=== PATIENT | female | born 1960 | race Caucasian/White ===

== ENCOUNTER 2020-04-07 17:59 | Emergency (ER) | payer MEDICARE, MEDICAID ==
[~2020-04-07] VITALS: Ht 172 cm; Wt 95.3 kg
[~2020-04-07 17:59] MED LIST: ALBU0.632 IH; ALBU0.8322 IH; ALBU8.5H2 IH; ALPR1TAB72 PO; ANTACID OTC PO; ASP325T PO; ASP325TEC PO; ASP81CT PO; ASP81TEC PO; ATR20T PO; AZIT-21 PO; BUDE6HFA IH; CA C1TAB26 PO; CALC-656 PO; CALC600T PO; CALC625T PO; CALCIUM CITRATE PO; CALCIUM PO; CALTRATE 600 +1 EACH PO; CEPH-507 PO; CHOL10003 PO; CLN.1T; CLN.1T PO; DICL75TA2 PO; DICY10CA59 PO; DIPH1TAB25 PO; DULO60CA6 PO; EFAV1TAB3; EFAV1TAB3 PO; EST.625T; ESTR2TAB PO; ESTR2TAB4 PO; FIBER THERAPY PO; FLUT16SP22 NS; GABAPENTIN PO; GBPN300C PO; HCT25T PO; HSC125B15 GT; HYDR-2997 PO; IBUP-15 PO; IMIP25TA4 PO; JANUVIA; LEVE1U SQ; LIPA1CAP20 PO; LIPA1CAP36 PO; LMTL2.5TRX PO; LOPE2TAB23 PO; LORA10TA2 PO; LRT10T PO; MELO-195 PO; MELO15TA14 PO; MEPE50TA PO; METH-336 PO; METH4TAB PO; METO25TA PO; MMT17NA NSEACH; MOME0.244 IH; MOMETASONE; MULT-974 PO; NAPR-1070 PO; NF-ESOM40C PO; NF-PULMINH INH; NITR-65 PO; NTR.4SL PO; NTR.4SL SL; ONDA8TAB9 PO; ONDAN4ODT PO; OXC5T; OXYC-12 PO; PANCRELIPASE PO; POTA10CA43 PO; PRM25T PO; PROP15DR OP; RHINOCORT AQUA IH; RT-COMBINH; RT-COMBINH IH; SOLI10TA4 PO; SOLI5TAB4 PO; SULF-222 PO; TOPI25TA2 PO; TPR25T PO; TRAM50TA2 PO; VARE1TAB17 PO; VITAMIN D PO; [UNRECOGNIZED DRUG - OTHER] PO; [UNRECOGNIZED DRUG - OTHER] PO
--- NOTE | 2020-04-07 18:06 | NUR ---
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
[2020-04-07] MEDS ORDERED: LIDOCAINE 1% INJ 20 ML 20 ML VIAL ONE (19:30)
[2020-04-07] MEDS ORDERED: LIDOCAINE 1% INJ 20 ML 20 ML VIAL INJ ONE (19:45)
[2020-04-07] MEDS ORDERED: CEPH500T PO (19:55)
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
--- NOTE | 2020-04-07 20:00 | Diagnostic Imaging Report ---
EXAMINATION: Right hand 3 views HISTORY: Laceration COMPARISON: 03/17/2011 FINDINGS: Alignment is normal. No acute fracture is seen. 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 No radiopaque foreign body is seen. IMPRESSION: 1. No fracture or foreign body is identified. Dictated by: Dictated on workstation # [id number]
[2020-04-07] MEDS ORDERED: CEPHALEXIN 250 MG (KEFLEX) CAP PO STA (20:11)
[2020-04-07] MEDS ORDERED: TETANUS,DIPTH,PERTUSS P/F (BOOSTRIX) 0.5 ML VIAL IM ONE (20:15)
[2020-04-07 20:19] VITALS: BP 137/81
== END 2020-04-07 20:19 | disposition home or self-care (01) ==
LOC: EDUNIT# 17:59 → ER 18:01
DX: S61.011A Laceration without foreign body of right thumb without damage to nail, initial encounter (principal); J44.9 Chronic obstructive pulmonary disease, unspecified; Z21 Asymptomatic human immunodeficiency virus [HIV] infection status; E11.40 Type 2 diabetes mellitus with diabetic neuropathy, unspecified; E78.00 Pure hypercholesterolemia, unspecified; F32.9 Major depressive disorder, single episode, unspecified; F41.9 Anxiety disorder, unspecified; I10 Essential (primary) hypertension; K21.9 Gastro-esophageal reflux disease without esophagitis; K44.9 Diaphragmatic hernia without obstruction or gangrene; K58.9 Irritable bowel syndrome, unspecified; M19.91 Primary osteoarthritis, unspecified site; M79.7 Fibromyalgia; Z79.4 Long term (current) use of insulin; Z90.710 Acquired absence of both cervix and uterus; W33.11XA Accidental malfunction of shotgun, initial encounter; Y93.79 Activity, other specified sports and athletics; Z23 Encounter for immunization
CPT/HCPCS: 12001; 73130; 90471; 90715

== ENCOUNTER 2020-04-22 16:08 | Emergency (ER) | payer MEDICARE, MEDICAID ==
[~2020-04-22] VITALS: Ht 175.3 cm; Wt 90.7 kg
[~2020-04-22 16:08] MED LIST changes: +CEPH500T PO
[2020-04-22 16:18] VITALS: BP 128/79
== END 2020-04-22 16:26 | disposition home or self-care (01) ==
LOC: ER 16:08 → EDUNIT# 16:08 → ER 16:26
DX: S61.011D Laceration without foreign body of right thumb without damage to nail, subsequent encounter (principal); X58.XXXD Exposure to other specified factors, subsequent encounter
CPT/HCPCS: 99281

== ENCOUNTER 2020-07-22 08:53 | Emergency (ER) | payer MEDICARE, MEDICAID ==
[~2020-07-22] VITALS: Ht 172.7 cm; Wt 88.6 kg
--- NOTE | 2020-07-22 10:15 | Diagnostic Imaging Report ---
INDICATION: Pain after fall. FINDINGS: There is a comminuted intra-articular fracture involving the proximal aspect of the middle phalanx of the left 5th finger. This is only slightly displaced. There is no other fracture or dislocation. There is soft tissue swelling. IMPRESSION: Intra-articular fracture involving the proximal aspect of the middle phalanx of the left 5th finger as described. Dictated by: Dictated on workstation # [id number]
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
[2020-07-22 10:50] VITALS: BP 151/77
== END 2020-07-22 10:50 | disposition home or self-care (01) ==
LOC: EDUNIT# 08:53 → ER 08:54
DX: S62.617A Displaced fracture of proximal phalanx of left little finger, initial encounter for closed fracture (principal); E78.00 Pure hypercholesterolemia, unspecified; I10 Essential (primary) hypertension; E11.9 Type 2 diabetes mellitus without complications; J44.9 Chronic obstructive pulmonary disease, unspecified; K21.9 Gastro-esophageal reflux disease without esophagitis; F41.9 Anxiety disorder, unspecified; F32.9 Major depressive disorder, single episode, unspecified; F17.200 Nicotine dependence, unspecified, uncomplicated; Z95.5 Presence of coronary angioplasty implant and graft; Z88.0 Allergy status to penicillin; Z88.1 Allergy status to other antibiotic agents; Z88.5 Allergy status to narcotic agent; Z88.8 Allergy status to other drugs, medicaments and biological substances; Z79.4 Long term (current) use of insulin; W18.39XA Other fall on same level, initial encounter
CPT/HCPCS: 73140

== ENCOUNTER → 2020-08-13 | Outpatient (CLI) | payer MEDICARE, MEDICAID | LOC: LAB 16:13 | PROVIDERS: ATTEND Nurse Practitioner Family | DX: Z01.818 Encounter for other preprocedural examination (principal) | CPT/HCPCS: 87081 ==

== ENCOUNTER → 2020-08-15 | Outpatient (CLI) | payer MEDICARE, MEDICAID | LOC: LABNPT 06:12 | PROVIDERS: ATTEND Nurse Practitioner Family | DX: Z01.812 Encounter for preprocedural laboratory examination (principal); Z20.828 Contact with and (suspected) exposure to other viral communicable diseases | CPT/HCPCS: 87635 ==

== ENCOUNTER 2020-08-24 16:34 | Emergency (ER) | payer MEDICARE, MEDICAID ==
[~2020-08-24] VITALS: Ht 173 cm; Wt 84.0 kg
[2020-08-24 17:30] LABS: BASOPHILS % (AUTO) 0 % (0-10); EOSINOPHILS # (AUTO) 0.2 10^3/uL (0.0-0.3); EOSINOPHILS % (AUTO) 2 % (0-10); HEMATOCRIT 34 % (35-52); HEMOGLOBIN 11.3 g/dL (11.5-16.0); LYMPHOCYTES # (AUTO) 2.3 10^3/uL (1.0-4.0); LYMPHOCYTES % (AUTO) 21 % (12-44); MEAN CORPUSCULAR HEMOGLOBIN 28 pg (25-34); MEAN CORPUSCULAR HGB CONC 33 g/dL (32-36); MEAN CORPUSCULAR VOLUME 85 fL (80-99); MEAN PLATELET VOLUME 9.7 fL (9.0-12.2); MONOCYTES # (AUTO) 1.3 10^3/uL (0.0-1.0); MONOCYTES % (AUTO) 12 % (0-12); NEUTROPHILS # (AUTO) 7.1 10^3/uL (1.8-7.8); NEUTROPHILS % (AUTO) 65 % (42-75); PLATELET COUNT 335 10^3/uL (130-400); WHITE BLOOD COUNT 10.9 10^3/uL (4.3-11.0)
[2020-08-24 17:41] LABS: ALBUMIN 3.5 GM/DL (3.2-4.5); CHLORIDE 99 MMOL/L (98-107); POTASSIUM 3.4 MMOL/L (3.6-5.0); SODIUM 135 MMOL/L (135-145)
[2020-08-24 17:42] LABS: CALCIUM 8.5 MG/DL (8.5-10.1)
[2020-08-24 17:43] LABS: GLUCOSE 96 MG/DL (70-105); TOTAL PROTEIN 6.4 GM/DL (6.4-8.2)
[2020-08-24 17:44] LABS: CARBON DIOXIDE 24 MMOL/L (21-32)
[2020-08-24 17:45] LABS: BILIRUBIN,TOTAL 0.8 MG/DL (0.1-1.0)
[2020-08-24 17:47] LABS: ALKALINE PHOSPHATASE 115 U/L (40-136); CREATININE SERUM 0.75 MG/DL (0.60-1.30); GFR ESTIMATED > 60
[2020-08-24 17:48] LABS: BUN/CREATININE RATIO 11
[2020-08-24 17:50] LABS: ALANINE AMINOTRANSFERASE 163 U/L (0-55)
[2020-08-24 17:58] LABS: ERYTHROCYTE SEDIMENTATION RATE 51 MM/HR (0-30)
--- NOTE | 2020-08-24 18:11 | ED Lower Extremity ---
General Chief Complaint: Lower Extremity Stated Complaint: LEFT KNEE PAIN Nursing Triage Note: Report she had a L knee replacement on the 20 of August and was discharged from the hospital on the . still having pain and noticing that it appeared to be getting red and feeling warm having increased pain with bearing weight on it. Nursing Sepsis Screen: No Definite Risk Source: patient Exam Limitations: no limitations History of Present Illness Date Seen by Provider: Aug 24, 2020 Time Seen by Provider: 17:02 Initial Comments This 59-year-old woman presents to the emergency room with worsening left knee pain, erythema, and swelling. Today is postoperative day #4 after having a superior partial knee replacement on the left. She had history of prior knee arthroplasty and part of the hardware was replaced. She denies fever. She has increased pain with weightbearing and walking. She called the on-call provider for her surgeon and was directed to the emergency room. Her surgeon is Dr. Cristiano Vences that [facility] in [place]. Allergies and Home Medications Allergies Coded Allergies: Penicillins (Unverified Allergy, Mild, ITCHING, 10/07/09) ciprofloxacin (Unverified Allergy, Mild, DIARRHEA, 10/07/09) diclofenac (Unverified Allergy, Mild, UPSET STOMACH, 10/07/09) fluticasone (Unverified Allergy, Mild, SWELLING, 10/07/09) levofloxacin (Unverified Allergy, Mild, DIARRHEA, 10/07/09) metformin (Unverified Allergy, Mild, COGNITIVE CHANGE, 10/07/09) misoprostol (Unverified Allergy, Mild, UPSET STOMACH, 10/07/09) nabumetone (Unverified Allergy, Mild, UPSET STOMACH, 10/07/09) pregabalin (Unverified Allergy, Mild, SWELING, 10/07/09) rofecoxib (Unverified Allergy, Mild, ULCERS, 10/07/09) salmeterol (Unverified Allergy, Mild, SWELLING, 10/07/09) diclofenac sodium (Unverified Allergy, Unknown, 02/01/15) fluticasone propionate (Unverified Allergy, Unknown, 02/01/15) hydrocodone (Verified Allergy, Unknown, 02/01/15) oxycodone (Verified Allergy, Unknown, 02/01/15) salmeterol xinafoate (Unverified Allergy, Unknown, 02/01/15) Home Medications Albuterol 8.5 Gm Hfa.aer.ad, 2 PUFF IH EVERY 4-6 HOURS PRN, (Reported) NEEDED FOR SHORTNESS OF BREATH Albuterol Sulfate 0.63 Mg/3 Ml Vial.neb, 0.63 MG IH Q 4 - 6 HRS PRN, (Reported) NEEDED FOR BREATHING Alprazolam 1 Mg Tab.rapdis, 1 MG PO Q8H PRN, (Reported) Amylase/Lipase/Protease 1 Each Capsule.dr, 6,000 UNITS PO TID, (Reported) BEFORE MEALS Atorvastatin 20 Mg Tablet, 40 MG PO DAILY, (Reported) Calcium Carbonate/Vitamin D3 1 Each Tab.chew, 600 MG PO DAILY, (Reported) Cefdinir 300 Mg Capsule, 300 MG PO BID Prescribed by: FRANCINE MANDUJANO on 08/24/202047 Cephalexin 500 Mg Tablet, 500 MG PO QID Prescribed by: LEIGH WALTERS on 04/07/201954 Dicyclomine HCl 10 Mg Capsule, 20 MG PO BID, (Reported) Doxycycline Hyclate 100 Mg Tablet, 100 MG PO BID Prescribed by: FRANCINE MANDUJANO on 08/24/202047 Duloxetine Hcl 60 Mg Capsule.dr, 1 EACH PO BID Prescribed by: MARIXA DE LA PAZ on 06/30/13 0848 Efavirenz/Emtricitab/Tenofovir 1 Each Tablet, 1 TAB PO HS, (Reported) [phone] Esomeprazole Mag Trihydrate 40 Mg Capsule.dr, 40 MG PO DAILY, (Reported) Estradiol 2 Mg Tablet, 2 MG PO DAILY, (Reported) Fluticasone Propionate 16 Gm Naspr, 2 SPRAYS NS BID, (Reported) Gabapentin 300 Mg Cap, 300 MG PO TID, (Reported) Hyoscyamine Sulfate 0.125 Mg/Ml Soln, 1.875 MG GT PRN, (Reported) Insulin Determir 100 U/Ml Insuln.pen, 35 UNITS SQ HS, (Reported) Loperamide Hcl 2 Mg Tab.chew, 2 MG PO BID PRN, (Reported) NEEDED FOR DIARRHEA Meloxicam 15 Mg Tablet, 15 MG PO DAILY, (Reported) Methylcellulose 500 Mg Tablet, 500 MG PO BID, (Reported) Metoprolol Succinate 25 Mg Tab.sr.24h, 12.5 MG PO DAILY, (Reported) Multivitamin 1 Each Tablet, 1 EACH PO DAILY, (Reported) Naproxen Sodium 550 Mg Tablet, 550 MG PO BID Prescribed by: BOLIVAR JENKINS on 07/24/15 0759 Nitroglycerin 0.4 Mg Tab, 0 SL PRN, (Reported) 1 TAB EVERY 5 MINUTES X 3 DOSES NEEDED FOR CHEST PAIN Potassium Chloride 10 Meq Capsule.sa, 10 MEQ PO DAILY, (Reported) Promethazine Hcl 25 Mg Tablet, 25 MG PO Q6H PRN, (Reported) NEEDED FOR NAUSEA/VOMITING Topiramate 25 Mg Tablet, 25 MG PO DAILY, (Reported) Tramadol Hcl 50 Mg Tablet, 100 MG PO TID PRN, (Reported) TAKES 2 (50 MG) TABLETS THREE TIMES DAILY NEEDED FOR PAIN [Liquid Antacid Otc] , PO NEEDED, (Reported) Patient Home Medication List Home Medication List Reviewed: Yes Review of Systems Constitutional: no symptoms reported EENTM: no symptoms reported Respiratory: no symptoms reported Cardiovascular: no symptoms reported Gastrointestinal: no symptoms reported Genitourinary: no symptoms reported : No Musculoskeletal: see HPI Skin: see HPI Psychiatric/Neurological: No Symptoms Reported Past Sclikfv-Arzfvg-Zmnydq Hx Past Med/Social Hx: Reviewed Nursing Past Med/Soc Hx Patient Social History Alcohol Use: Denies Use Recreational Drug Use: No Smoking Status: Current Everyday Smoker Recent Foreign Travel: No Contact w/Someone Who Travel: No Recent Infectious Disease Expo: No Recent Hopitalizations: No Immunizations Up To Date Tetanus Booster (TDap): Unknown Date of Pneumonia Vaccine: Jul 04, 2013 Date of Influenza Vaccine: Aug 03, 2014 Seasonal Allergies Seasonal Allergies: No Past Medical History Surgeries: Yes (HIATAL HERNIA, R/L CARPAL TUNNE;, R HIP, R ANJLE, L KNEE) Eye Surgery, Gallbladder, Hysterectomy, Orthopedic Respiratory: Yes (COPD) Asthma, Chronic Bronchitis, COPD Cardiac: Yes (CHRONIC CHEST PAIN, heart stent 03/2019 ) Angina, High Cholesterol, Hypertension 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 Physical Exam Vital Signs Vital Signs - First Documented 08/24/20 08/24/20 16:43 19:45 Temp 37.5 Pulse 92 Resp 20 B/P (MAP) 115/74 (88) Pulse Ox 96 O2 Delivery Room Air Capillary Refill : Less Than 3 Seconds Height, Weight, BMI Height: 5'8.00" Weight: 210lbs. 1.6oz. [id number]; 28.00 BMI Method:Estimated General Appearance: WD/WN, no apparent distress HEENT: normal ENT inspection, pharynx normal Neck: normal inspection Cardiovascular: regular rate, rhythm, no edema, no murmur Respiratory: lungs clear, normal breath sounds, no respiratory distress, no accessory muscle use Gastrointestinal: normal bowel sounds, non tender, soft Knees: right knee non-tender, right knee normal inspection; left knee joint effusion, left knee pain, left knee soft tissue tenderness, left knee swelling, left knee other (Significant soft edema of the left knee with erythema superior to the joint line. Incision with some fresh red blood distally. There is some dried drainage, some of which has a greenish appearance. Blotchy erythema surrounding the incision. No active draining. 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 The left lateral knee was prepped with Betadine. Local anesthetic was provided with an injection of 1% lidocaine. The knee was aspirated from a superior lateral approach using an 18-gauge spinal needle. About 30 mL of grossly bloody fluid was aspirated. Aspiration gave the patient relief of pressure. Fluid was sent for culture. Progress/Results/Core Measures Results/Orders Lab Results Laboratory Tests Test 08/24/20 17:25 Range/Units White Blood Count 10.9 4.3-11.0 10^3/uL Red Blood Count 4.01 3.80-5.11 10^6/uL Hemoglobin 11.3 L 11.5-16.0 g/dL Hematocrit 34 L 35-52 % Mean Corpuscular Volume 85 80-99 fL Mean Corpuscular Hemoglobin 28 25-34 pg Mean Corpuscular Hemoglobin Concent 33 32-36 g/dL Red Cell Distribution Width 14.1 10.0-14.5 % Platelet Count 335 130-400 10^3/uL Mean Platelet Volume 9.7 9.0-12.2 fL Immature Granulocyte % (Auto) 1 % Neutrophils (%) (Auto) 65 42-75 % Lymphocytes (%) (Auto) 21 12-44 % Monocytes (%) (Auto) 12 0-12 % Eosinophils (%) (Auto) 2 0-10 % Basophils (%) (Auto) 0 0-10 % Neutrophils # (Auto) 7.1 1.8-7.8 10^3/uL Lymphocytes # (Auto) 2.3 1.0-4.0 10^3/uL Monocytes # (Auto) 1.3 H 0.0-1.0 10^3/uL Eosinophils # (Auto) 0.2 0.0-0.3 10^3/uL Basophils # (Auto) 0.0 0.0-0.1 10^3/uL Immature Granulocyte # (Auto) 0.1 0.0-0.1 10^3/uL Erythrocyte Sedimentation Rate 51 H 0-30 MM/HR Sodium Level 135 135-145 MMOL/L Potassium Level 3.4 L 3.6-5.0 MMOL/L Chloride Level 99 98-107 MMOL/L Carbon Dioxide Level 24 21-32 MMOL/L Anion Gap 12 5-14 MMOL/L Blood Urea Nitrogen 8 7-18 MG/DL Creatinine 0.75 0.60-1.30 MG/DL Estimat Glomerular Filtration Rate > 60 BUN/Creatinine Ratio 11 Glucose Level 96 70-105 MG/DL Calcium Level 8.5 8.5-10.1 MG/DL Corrected Calcium 8.9 8.5-10.1 MG/DL Total Bilirubin 0.8 0.1-1.0 MG/DL Aspartate Amino Transf (AST/SGOT) 38 H 5-34 U/L Alanine Aminotransferase (ALT/SGPT) 163 H 0-55 U/L Alkaline Phosphatase 115 40-136 U/L C-Reactive Protein High Sensitivity 14.08 H 0.00-0.50 MG/DL Total Protein 6.4 6.4-8.2 GM/DL Albumin 3.5 3.2-4.5 GM/DL Procalcitonin 0.04 <0.10 NG/ML Micro Results Microbiology 08/24/20 Blood Culture - Preliminary, Resulted No growth 08/24/20 Gram Stain - Final, Complete 08/24/20 Body Fluid Culture - Final, Complete No growth 08/24/20 Blood Culture - Preliminary, Resulted No growth My Orders Orders - FRANCINE BA MD Cbc With Automated Diff (08/24/20 17:10) Comprehensive Metabolic Panel (08/24/20 17:10) Hs C Reactive Protein (08/24/20 17:10) Erythrocyte Sedimentation Rate (08/24/20 17:10) Procalcitonin (Pct) (08/24/20 17:10) Ed Iv/Invasive Line Start (08/24/20 17:10) Foot, Right, 3 View (08/24/20 19:32) Lidocaine 1% Inj 20 Ml (Xylocaine 1% Inj (08/24/20 20:15) Ceftriaxone For Iv Use (Rocephin For I (08/24/20 20:15) Vancomycin Injection (Vancomycin Injecti (08/24/20 20:15) Vancomycin Injection (Vancomycin Injecti (08/24/20 21:15) Morphine Injection (Morphine Injection (08/24/20 20:25) Blood Culture (08/24/20 20:43) Body Fluid Culture (08/24/20 20:43) Medications Given in ED Vital Signs/I&O 08/24/20 08/24/20 08/24/20 16:43 19:45 22:25 Temp 37.5 37.2 Pulse 92 78 72 Resp 20 16 B/P (MAP) 115/74 (88) 129/64 136/63 (88) Pulse Ox 96 99 96 O2 Delivery Room Air Room Air Blood Pressure Mean: 88 Progress Progress Note #1: Time: 19:21 Progress Note Clinical presentation and labs are concerning for possible postoperative infection. [facility] does not have any orthopedic coverage at this time. I spoke with Dr. Nichols who is on-call for Dr. Vences. He recommended evaluation by an orthopedic team and aspiration of the joint, preferably at [facility] where she had her original surgery. He advised against antibiotic therapy at this point so as to not interfere with cultures. Since patient is stable at this time I will comply with that request. I called the transfer center to facilitate ER to ER transfer. Transfer was declined due to admission diversion at [place]. I have since also contacted [facility] in [place], [facility], [facility], and [facility] in [place]. These facilities have also declined transfer due to diversion except [facility] who is contacting the orthopedic team. Patient also states she struck her right heel hard on a chair and would like it x-rayed. She is tender over the mid heel. Progress Note #2: Time: 20:56 Progress Note Heel x-ray was unremarkable. We could not find a facility not on diversion to transfer the patient to within a reasonable distance. I discussed the situation again with Dr. Nichols. The following plan was developed with his assistance. As an alternative, we aspirated the joint here for cultures. Antibiotics were administered including Rocephin and vancomycin. Unfortunately, due to a error in timing of orders, Rocephin was administered before blood cultures were drawn. The knee was aspirated yielding about 30 mL of grossly bloody fluid. Patient had prompt relief of pressure upon aspiration. She was pretreated with morphine 4 mg. Prescriptions of Omnicef and doxycycline were given for further antibiotic therapy. Patient is given strict instructions to present to [facility] if symptoms worsen. If symptoms are severe she is to go directly to the nearest emergency room. Patient is aware of the risks involve in possible infected joint hardware and commits to returning to care if symptoms worsen. She wishes to avoid inpatient care at this time even knowing the risks. It is possible her symptoms are also due to hemarthrosis without infection. Diagnostic Imaging Diagonstic Imaging: Xray Plain Films/CT/US/NM/MRI: other (Right Foot) Departure Impression Primary Impression: Postoperative pain Additional Impressions: Swelling of left knee joint Hemarthrosis Abnormal laboratory test Disposition: XFER SHT-TRM HOSP Condition: Stable (ERASED) Departure-Patient Inst. Decision time for Depature: 20:47 Referrals: NO,LOCAL PHYSICIAN (PCP/Family) Primary Care Physician Patient Instructions: Hemarthrosis Add. Discharge Instructions: Start your antibiotics tomorrow morning. Elevate your foot to the level of your heart as much as possible. A light compressive wrapping such as a large Dwain bandage may be helpful in reducing pain and swelling. If your symptoms are worsening, present directly to the [facility] emergency room for orthopedic evaluation. If symptoms are severe, present to the nearest emergency room. Symptoms that should prompt further evaluation include escalating pain, fever over 100 degrees, spreading redness, puslike drainage, etc. Contact Dr. Vences first thing Wednesday. In the meantime, contact the [facility] emergency room each afternoon to check on your culture results. All discharge instructions reviewed with patient and/or family. Voiced understanding. Scripts Doxycycline Hyclate (Doxycycline Hyclate) 100 Mg Tablet 100 MG PO BID, #20 TAB 0 Refills Prov: FRANCINE BA MD 08/24/20 Cefdinir (Cefdinir) 300 Mg Capsule 300 MG PO BID, #20 CAP Prov: FRANCINE AB MD 08/24/20 FRANCINE BA MD Aug 24, 2020 18:11
--- NOTE | 2020-08-24 20:04 | Diagnostic Imaging Report ---
CLINICAL HISTORY: Right foot pain. COMPARISON: 01/28/2016. TECHNIQUE: Three views of the right foot. FINDINGS: There is no acute fracture or dislocation of the right foot. Alignment is anatomic. There is partial visualization of prior right ankle arthroplasty changes. The surrounding soft tissues of the right foot are unremarkable. IMPRESSION: No acute fracture or dislocation in the right foot. Dictated by: Dictated on workstation # [id number]
[2020-08-24] MEDS ORDERED: LIDOCAINE 1% INJ 20 ML 20 ML VIAL INJ ONE (20:15)
[2020-08-24] MEDS ORDERED: VANCOMYCIN INJECTION 1,000 MG in NS (IVPB) 250 ML IV ONE (20:15)
[2020-08-24] MEDS ORDERED: cefTRIAXone FOR IV USE 1,000 MG in WATER (STERILE) FOR INJECTION 10 ML IV ONE (20:15)
[2020-08-24] MEDS ORDERED: morphine INJ 10 MG/ML 1ML (SYR OR VIAL) ONE (20:25)
--- NOTE | 2020-08-24 20:35 | NUR ---
left knee aspirated by dr calles.
[2020-08-24] MEDS ORDERED: CEFD300C3 PO (20:48)
[2020-08-24] MEDS ORDERED: DOXY100T2 PO (20:48)
[2020-08-24] MEDS ORDERED: VANCOMYCIN INJECTION 750 MG in NS (IVPB) 250 ML IV ONE (21:15)
[2020-08-24 22:25] VITALS: BP 136/63
--- NOTE | 2020-08-26 17:17 | NUR ---
SPOKE WITH PATIENT ABOUT KNEE ASPIRATION RESULTS
== END 2020-08-24 22:29 | disposition short-term general hospital (02) ==
LOC: EDUNIT# 16:34 → ER 16:35
DX: G89.18 Other acute postprocedural pain (principal); M25.462 Effusion, left knee; M25.062 Hemarthrosis, left knee; K21.9 Gastro-esophageal reflux disease without esophagitis; J44.9 Chronic obstructive pulmonary disease, unspecified; E78.00 Pure hypercholesterolemia, unspecified; E11.9 Type 2 diabetes mellitus without complications; I10 Essential (primary) hypertension; F41.9 Anxiety disorder, unspecified; F32.9 Major depressive disorder, single episode, unspecified; F17.200 Nicotine dependence, unspecified, uncomplicated; Z88.0 Allergy status to penicillin; Z88.1 Allergy status to other antibiotic agents; Z88.5 Allergy status to narcotic agent; Z88.8 Allergy status to other drugs, medicaments and biological substances; Z79.4 Long term (current) use of insulin
CPT/HCPCS: 36415; 73630; 80053; 84145; 85025; 85652; 86141; 87040; 87070; 87205

== ENCOUNTER 2020-10-10 09:43 | Outpatient (RCR) | payer MEDICARE, MEDICAID ==
[~2020-10-10 09:43] MED LIST changes: +CEFD300C3 PO; +DOXY100T2 PO
== END 2020-10-10 12:18 | disposition home or self-care (01) ==
PROVIDERS: ATTEND Orthopaedic Surgery Adult Reconstructive Orthopaedic Surgery
DX: T84.84XA Pain due to internal orthopedic prosthetic devices, implants and grafts, initial encounter (principal); I10 Essential (primary) hypertension; E11.9 Type 2 diabetes mellitus without complications; Z20.828 Contact with and (suspected) exposure to other viral communicable diseases; Z96.652 Presence of left artificial knee joint

== ENCOUNTER 2020-10-24 10:18 | Outpatient (RCR) | payer MEDICARE, MEDICAID | END 2020-10-24 13:00 | disposition home or self-care (01) | PROVIDERS: ATTEND Nurse Practitioner Family | DX: R29.898 Other symptoms and signs involving the musculoskeletal system (principal); R68.89 Other general symptoms and signs ==

== ENCOUNTER 2020-12-06 09:49 | Outpatient (RCR) | payer MEDICARE, MEDICAID | END 2020-12-09 17:00 | disposition home or self-care (01) | PROVIDERS: ATTEND Nurse Practitioner Family | DX: M51.26 Other intervertebral disc displacement, lumbar region (principal); Z72.0 Tobacco use ==

== ENCOUNTER 2021-01-08 11:11 | Outpatient (RCR) | payer MEDICARE, MEDICAID | END 2021-02-11 11:48 | disposition home or self-care (01) | PROVIDERS: ATTEND Nurse Practitioner Family | DX: M51.26 Other intervertebral disc displacement, lumbar region (principal) ==

== ENCOUNTER → 2021-01-24 | Outpatient (CLI) | payer MEDICARE, MEDICAID | LOC: RAD 10:15 | PROVIDERS: ATTEND Physician Assistant | DX: Z12.31 Encounter for screening mammogram for malignant neoplasm of breast (principal) | CPT/HCPCS: 77063; 77067 ==

== ENCOUNTER → 2022-02-20 | Outpatient (CLI) | payer MEDICARE, MEDICAID ==
--- NOTE | 2022-02-20 13:52 | Diagnostic Imaging Report ---
Indication: Bilateral 3-D digital screening with CAD CAD is utilized. The current study was also evaluated with a Computer Aided Detection (CAD) system. COMPARISON: 01/2021, 08/2019 and 07/2018 FINDINGS: Density 3 Scattered benign type calcifications persist. No architectural distortion, spiculated lesion, suspect calcifications or findings to suggest malignancy. IMPRESSION: BI-RADS Category 2 ACR BI-RADS Category 2: Benign findings. Result letter will be mailed to the patient. Note: At least 10% of breast cancer is not imaged by mammography. Dictated by: Dictated on workstation # [id number]
== END ==
LOC: RAD 10:45
PROVIDERS: ATTEND Physician Assistant
DX: Z12.31 Encounter for screening mammogram for malignant neoplasm of breast (principal)
CPT/HCPCS: 77063; 77067

== ENCOUNTER 2022-04-04 17:59 | Emergency (ER) | payer MEDICARE, MEDICAID ==
[~2022-04-04] VITALS: Ht 175 cm; Wt 90.7 kg
[2022-04-04 18:13] VITALS: BP 195/99
--- NOTE | 2022-04-04 18:15 | ED Lower Extremity ---
General Stated Complaint: R ANKLE PAIN Source: patient History of Present Illness Date Seen by Provider: Apr 04, 2022 Time Seen by Provider: 18:04 Initial Comments PT ARRIVES VIA POV FROM HOME, WANTS WHEELCHAIR ON ARRIVAL STATES AROUND 1330 TODAY, SHE SLIPPED AND HER RIGHT LEG "BUCKLED UP UNDERNEATH ME" RIGHT KNEE BENT AND RIGHT LOWER LEG AND FOOT AND FOLDED BEHIND/UNDER HER NO OTHER INJURIES FROM THE INCIDENT NO NEW PARESTHESIAS OR MOTOR DEFICITS--PT HAS PERIPHERAL NEUROPATHY FROM [facility] HAS NOT TAKEN ANYTHING FOR PAIN AT ANY TIME--HAS ULTRAM AND MOBIC AT HOME, BUT HAS NOT TAKEN ANY TODAY PT HAS HAD PRIOR RIGHT ANKLE SURGERY/ ANKLE REPLACEMENT WITH HARDWARE IN PLACE--DONE IN 2013. ORTHOPEDIC SURGEON IS IN [place] Allergies and Home Medications Allergies Coded Allergies: Penicillins (Unverified Allergy, Mild, ITCHING, 10/07/09) ciprofloxacin (Unverified Allergy, Mild, DIARRHEA, 10/07/09) diclofenac (Unverified Allergy, Mild, UPSET STOMACH, 10/07/09) fluticasone (Unverified Allergy, Mild, SWELLING, 10/07/09) levofloxacin (Unverified Allergy, Mild, DIARRHEA, 10/07/09) metformin (Unverified Allergy, Mild, COGNITIVE CHANGE, 10/07/09) misoprostol (Unverified Allergy, Mild, UPSET STOMACH, 10/07/09) nabumetone (Unverified Allergy, Mild, UPSET STOMACH, 10/07/09) pregabalin (Unverified Allergy, Mild, SWELING, 10/07/09) rofecoxib (Unverified Allergy, Mild, ULCERS, 10/07/09) salmeterol (Unverified Allergy, Mild, SWELLING, 10/07/09) diclofenac sodium (Unverified Allergy, Unknown, 02/01/15) fluticasone propionate (Unverified Allergy, Unknown, 02/01/15) hydrocodone (Verified Allergy, Unknown, 02/01/15) oxycodone (Verified Allergy, Unknown, 02/01/15) salmeterol xinafoate (Unverified Allergy, Unknown, 02/01/15) Patient Home Medication List Home Medication List Reviewed: Yes Albuterol (Proair Hfa) 8.5 Gm Hfa.aer.ad, 2 PUFF IH EVERY 4-6 HOURS PRN, (Reported) Entered as Reported by: JANKI SCHWARTZ on 04/18/10 1048 Albuterol Sulfate (Albuterol Sulfate 0.63 Mg/3 Ml Ns) 0.63 Mg/3 Ml Vial.neb, 0.63 MG IH Q 4 - 6 HRS PRN, (Reported) Entered as Reported by: LAVONNE CORTES on 05/08/13 1437 Alprazolam (Alprazolam) 1 Mg Tab.rapdis, 1 MG PO Q8H PRN, (Reported) Entered as Reported by: ANDER HURST on 06/30/13 0443 Amylase/Lipase/Protease (Pancrease Capsule Ec) 1 Each Capsule.dr, 6,000 UNITS PO TID, (Reported) Entered as Reported by: ANDER HURST on 06/30/13 042 Atorvastatin (Lipitor 20MG) 20 Mg Tablet, 40 MG PO DAILY, (Reported) Entered as Reported by: LAVONNE CORTES on 05/08/13 1437 Calcium Carbonate/Vitamin D3 (Caltrate 600 + D Chewable Tab) 1 Each Tab.chew, 600 MG PO DAILY, (Reported) Entered as Reported by: ANDER HURST on 06/30/13426 Cefdinir (Cefdinir) 300 Mg Capsule, 300 MG PO BID Prescribed by: FRANCINE MANDUJANO on 08/24/202047 Cephalexin (Cephalexin) 500 Mg Tablet, 500 MG PO QID Prescribed by: LEIGH WALTERS on 04/07/201954 Dicyclomine HCl (Bentyl) 10 Mg Capsule, 20 MG PO BID, (Reported) Entered as Reported by: GUNNAR YAO on 02/01/15 1022 Doxycycline Hyclate (Doxycycline Hyclate) 100 Mg Tablet, 100 MG PO BID Prescribed by: FRANCINE MANDUJANO on 08/24/202047 Duloxetine Hcl (Cymbalta) 60 Mg Capsule., 1 EACH PO BID Prescribed by: MARIXA DE LA PAZ on 06/30/13 0848 Efavirenz/Emtricitab/Tenofovir (Atripla Tablet) 1 Each Tablet, 1 TAB PO HS, (Reported) Entered as Reported by: LEIGH ARMANDO on 04/18/10 0709 Esomeprazole Mag Trihydrate (Nexium) 40 Mg Capsule.dr, 40 MG PO DAILY, (Reported) Entered as Reported by: ADOLFO DU on 03/22/13 1014 Estradiol (Estrace) 2 Mg Tablet, 2 MG PO DAILY, (Reported) Entered as Reported by: LAVONNE CORTES on 05/08/13 1437 Fluticasone Propionate (Flonase Nasal [place]) 16 Gm Naspr, 2 SPRAYS NS BID, (Reported) Entered as Reported by: LAVONNE CORTES on 05/08/13 1437 Gabapentin (Neurontin) 300 Mg Cap, 300 MG PO TID, (Reported) Entered as Reported by: ANDER HURST on 06/30/13 042 Hyoscyamine Sulfate (Levsin Oral Drops) 0.125 Mg/Ml Soln, 1.875 MG GT PRN, (Reported) Entered as Reported by: GUNNAR YAO on 02/01/15 1022 Insulin Determir (Levemir Pen) 100 U/Ml Insuln.pen, 35 UNITS SQ HS, (Reported) Entered as Reported by: SAW GONZALEZ on 03/14/10 0603 Loperamide Hcl (Imodium A-D) 2 Mg Tab.chew, 2 MG PO BID PRN, (Reported) Entered as Reported by: ADOLFO DU on 03/22/13 1013 Meloxicam (Meloxicam) 15 Mg Tablet, 15 MG PO DAILY, (Reported) Entered as Reported by: GUNNAR YAO on 02/01/15 1022 Methylcellulose (Fiber) 500 Mg Tablet, 500 MG PO BID, (Reported) Entered as Reported by: ANDER HURST on 06/30/13 0433 Metoprolol Succinate (Metoprolol Succinate) 25 Mg Tab.sr.24h, 12.5 MG PO DAILY, (Reported) Entered as Reported by: DEANA MCKENZIE on 11/17/13 1315 Multivitamin (Multi Vitamin Daily) 1 Each Tablet, 1 EACH PO DAILY, (Reported) Entered as Reported by: ANDER HURST on 06/30/13 042 Naproxen Sodium (Anaprox Ds) 550 Mg Tablet, 550 MG PO BID Prescribed by: BOLIVAR JENKINS on 07/24/15 0759 Nitroglycerin (Nitrostat) 0.4 Mg Tab, 0 SL PRN, (Reported) Entered as Reported by: LAVONNE CORTES on 05/08/13 1437 Potassium Chloride (Potassium Chloride) 10 Meq Capsule.sa, 10 MEQ PO DAILY, (Reported) Entered as Reported by: LAVONNE CORTES on 05/08/13 1437 Promethazine Hcl (Phenergan 25 Mg) 25 Mg Tablet, 25 MG PO Q6H PRN, (Reported) Entered as Reported by: JANKI SCHWARTZ on 04/18/10 1024 Topiramate (Topiramate) 25 Mg Tablet, 25 MG PO DAILY, (Reported) Entered as Reported by: GUNNAR YAO on 02/01/15 1022 Tramadol Hcl (Tramadol Hcl) 50 Mg Tablet, 100 MG PO TID PRN, (Reported) Entered as Reported by: JANKI SCHWARTZ on 04/18/10 1027 [Liquid Antacid Otc] , PO NEEDED, (Reported) Entered as Reported by: ANDER HURST on 06/30/13 0443 Review of Systems Constitutional: no symptoms reported Musculoskeletal: see HPI Skin: no symptoms reported Psychiatric/Neurological: No Symptoms Reported Past Kafaaoa-Knxwwn-Afzjdw Hx Patient Social History Tobacco Use?: Yes (1 PPD) Tobacco type used: Cigarettes Smoking Status: Current Everyday Smoker Substance use?: No Alcohol Use?: Yes Alcohol Frequency: Once in a while Immunizations Up To Date Tetanus Booster (TDap): Unknown Seasonal Allergies Seasonal Allergies: No Past Medical History Surgeries: Yes (HIATAL HERNIA;R/L CARPAL TUNNEL;R HIP;R ANKLE;L KNEE TKR;SPINAL STIMULATOR) Abdominal, Cardiac, Coronary Stent, Eye Surgery, Gallbladder, Hysterectomy, Orthopedic Respiratory: Yes (COPD) Asthma, Chronic Bronchitis, COPD Cardiac: Yes (CHRONIC CHEST PAIN; CARDIAC CATHS WITH STENT X 03/2019 ) Angina, Coronary Artery Disease, High Cholesterol, Hypertension Neurological: Yes 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 ORTHO SURGERIES) Degenerate Disk Disease, Arthritis, Fibromyalgia, Chronic Back Pain Endocrine: Yes Diabetes, Insulin dep, Hypothyroidsim HEENT: Yes Cataract Hearing Impairment: Hard of Hearing Cancer: No Psychosocial: Yes Anxiety, Depression Integumentary: No Blood Disorders: Yes (HIV) Family Medical History Patient reports no known family medical history. PAST SURGICAL HISTORY: -MULTIPLE CARDIAC CATHS, WITH CARDIAC STENT X 1 03/2019 -LEFT TOTAL KNEE REPLACEMENT -RIGHT ANKLE SURGERY--ANKLE REPLACEMENT 2012 -LEFT ANKLE REPLACEMENT SURGERY -BILATERAL CARPAL TUNNEL SURGERY -SPINAL STIMULATOR -RIGHT HIP REPLACEMENT SURGERY -MULTIPLE KNEE ARTHROSCOPIES -HIATAL HERNIA REPAIR -HYSTERECTOMY -CHILECYSTECTOMY -BILATERAL CATARACT SURGERY -URETHRAL SLING 12/2012 Physical Exam Vital Signs Vital Signs - First Documented 04/04/22 18:13 Pulse 69 Resp 18 B/P (MAP) 195/99 (131) Pulse Ox 95 Capillary Refill : Height, Weight, BMI Height: 5'8.00" Weight: 210lbs. 1.6oz. 95.301157pj; 28.00 BMI Method:Estimated General Appearance: WD/WN, no apparent distress Hips: bilateral hip normal inspection Legs: bilateral leg normal inspection Knees: bilateral knee normal inspection Ankles: left ankle normal inspection; right ankle bone tenderness, right ankle limited range of motion, right ankle pain, right ankle soft tissue tenderness Feet: left foot normal inspection; right foot bone tenderness, right foot limited range of motion, right foot pain, right foot soft tissue tenderness Neurologic/Tendon: normal sensation (HAS SENSATION BUT HAS PERIPHERAL NEUROPATHY), normal motor functions, normal tendon functions, other (PULSES INTACT) 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, no motor/sensory deficits, alert, normal mood/affect, oriented x 3 Skin: normal color, warm/dry; No ecchymosis Procedures/Interventions Suture Size: 5-0 Splinting and Joint Reduction : Immobilizers: Step Light Walker s/m/lg Progress/Results/Core Measures Results/Orders My Orders Orders - KIMI,DAVID K DO Tibia/Fibula, Right, 2 Views (04/04/22 18:09) Foot, Right, 3 View (04/04/22 18:09) Ankle, Right, 3 Views (04/04/22 18:09) Steplite (04/04/22 18:51) Vital Signs/I&O 04/04/22 18:13 Pulse 69 Resp 18 B/P (MAP) 195/99 (131) Pulse Ox 95 Progress Progress Note : Progress Note PT HAS A WALKER AND CANES AT HOME PT HAS MOBIC AND ULTRAM AT HOME FOR PAIN Diagnostic Imaging Comments XRAYS--PER RADIOLOGIST REPORTS AT 1849 RIGHT TIB-FIB-- FINDINGS: No fracture or acute bony abnormality is seen. Right ankle arthroplasty noted. IMPRESSION: No acute abnormality of the right tibia and fibula. RIGHT ANKLE-- FINDINGS: Patient has had previous right ankle arthroplasty. No acute fracture or acute bony abnormality is seen. IMPRESSION: Postop changes with no acute abnormality of the right ankle. Alignment unchanged from 01/28/2016. RIGHT FOOT-- FINDINGS: No fracture or acute bony abnormality is seen. See separate dictation for right ankle. IMPRESSION: No acute abnormality in the right foot. Reviewed: Reviewed by Me Departure Impression Primary Impression: RIGHT FOOT AND ANKLE SPRAIN Disposition: 01 HOME, SELF-CARE Condition: Stable Departure-Patient Inst. Decision time for Depature: 18:50 Referrals: NO,LOCAL PHYSICIAN (PCP/Family) Primary Care Physician Patient Instructions: Ankle Sprain (DC), Walking Boot Add. Discharge Instructions: WEAR BOOT AT ALL TIMES USE WALKER AT ALL TIMES TAKE YOUR HOME PAIN MEDICATIONS--MOBIC AND ULTRAM FOLLOW UP WITH YOUR ORTHOPEDIC SURGEON IN 1 WEEK FOR FURTHER CARE--CALL ON WEDNESDAY TO SCHEDULE APPOINTMENT DAVID BOLDEN DO Apr 04, 2022 18:15
--- NOTE | 2022-04-04 18:44 | Diagnostic Imaging Report ---
INDICATION: Right leg pain post fall. EXAMINATION: AP and lateral views of the right tibia and fibula were obtained. FINDINGS: No fracture or acute bony abnormality is seen. Right ankle arthroplasty noted. IMPRESSION: No acute abnormality of the right tibia and fibula. Dictated by: Dictated on workstation # [id number]
--- NOTE | 2022-04-04 18:44 | Diagnostic Imaging Report ---
INDICATION: Right ankle pain post fall. EXAMINATION: AP and oblique and lateral views of the right ankle were obtained. FINDINGS: Patient has had previous right ankle arthroplasty. No acute fracture or acute bony abnormality is seen. IMPRESSION: Postop changes with no acute abnormality of the right ankle. Alignment unchanged from 01/28/2016. Dictated by: Dictated on workstation # [id number]
--- NOTE | 2022-04-04 18:45 | Diagnostic Imaging Report ---
INDICATION: Right foot pain post fall. EXAMINATION: AP, oblique and lateral views of the right foot were obtained. FINDINGS: No fracture or acute bony abnormality is seen. See separate dictation for right ankle. IMPRESSION: No acute abnormality in the right foot. Dictated by: Dictated on workstation # [id number]
== END 2022-04-04 19:12 | disposition home or self-care (01) ==
LOC: EDUNIT# 17:59 → ER 18:01
DX: S93.401A Sprain of unspecified ligament of right ankle, initial encounter (principal); S93.601A Unspecified sprain of right foot, initial encounter; E11.40 Type 2 diabetes mellitus with diabetic neuropathy, unspecified; F17.210 Nicotine dependence, cigarettes, uncomplicated; Z79.4 Long term (current) use of insulin; Z96.652 Presence of left artificial knee joint; W01.0XXA Fall on same level from slipping, tripping and stumbling without subsequent striking against object, initial encounter; Y92.009 Unspecified place in unspecified non-institutional (private) residence as the place of occurrence of the external cause
CPT/HCPCS: 73590; 73610; 73630; 99283; L2114

== ENCOUNTER 2022-05-06 20:39 | Outpatient (CLI) | payer MEDICARE, MEDICAID | END 2022-05-07 06:36 | disposition home or self-care (01) | LOC: SLEEP 20:39 | PROVIDERS: ATTEND Nurse Practitioner Family | DX: G47.9 Sleep disorder, unspecified (principal); J44.9 Chronic obstructive pulmonary disease, unspecified | CPT/HCPCS: 95810 ==

== ENCOUNTER → 2022-05-07 | Outpatient (CLI) | payer MEDICARE, MEDICAID ==
[~2022-05-07] MED LIST changes: +RT-ALBUTEROL SULF 2.5 MG/3 ML PRE-MIX VIAL INH ONE
== END ==
LOC: RT 08:00
PROVIDERS: ATTEND Nurse Practitioner Family
DX: J44.9 Chronic obstructive pulmonary disease, unspecified (principal)
CPT/HCPCS: 94060; 94726; 94729

== ENCOUNTER 2022-06-24 06:30 | Outpatient (CLI) | payer MEDICARE, MEDICAID ==
[~2022-06-24] VITALS: Ht 172.7 cm; Wt 93.4 kg
[~2022-06-24 06:30] MED LIST changes: -RT-ALBUTEROL SULF 2.5 MG/3 ML PRE-MIX VIAL INH ONE
[2022-06-24] MEDS ORDERED: MULT-1136 PO (09:53)
[2022-06-24] MEDS ORDERED: GABA-486 PO (09:53)
[2022-06-24] MEDS ORDERED: ATOR80TA76 PO (09:53)
[2022-06-24] MEDS ORDERED: ALBU8.5H9 IH (09:53)
[2022-06-24] MEDS ORDERED: CREONC PO (09:53)
[2022-06-24] MEDS ORDERED: TRAM50TA3 PO (09:53)
[2022-06-24] MEDS ORDERED: MELO15TA39 PO (09:53)
[2022-06-24] MEDS ORDERED: METO-333 PO (09:53)
[2022-06-24] MEDS ORDERED: INSU100V5 SQ (09:53)
[2022-06-24] MEDS ORDERED: ALBU0.63 IH (09:53)
[2022-06-24] MEDS ORDERED: PROM25TA14 PO (09:53)
[2022-06-24] MEDS ORDERED: DICY20TA PO (09:53)
[2022-06-24] MEDS ORDERED: DICL50TA6 PO (09:57)
[2022-06-24] MEDS ORDERED: ESCI10TA PO (09:57)
[2022-06-24] MEDS ORDERED: LORA10TA7 PO (09:57)
[2022-06-24] MEDS ORDERED: DIPH1TAB25 PO (09:57)
[2022-06-24] MEDS ORDERED: GLIM4TAB5 PO (09:57)
[2022-06-24] MEDS ORDERED: METO5TAB2 PO (09:57)
[2022-06-24] MEDS ORDERED: DULO60CA59 PO (09:57)
[2022-06-24] MEDS ORDERED: DEXL60CA PO (09:57)
[2022-06-24] MEDS ORDERED: FLUT1BLS3 IH (09:57)
[2022-06-24] MEDS ORDERED: AMLO-251 PO (09:57)
[2022-06-24] MEDS ORDERED: BICT1TAB PO (09:57)
[2022-06-24] MEDS ORDERED: CLN.1T PO (09:57)
== END 2022-06-24 10:00 | disposition home or self-care (01) ==
LOC: PREOP 06:30
PROVIDERS: ATTEND Surgery
DX: Z01.818 Encounter for other preprocedural examination (principal)

== ENCOUNTER 2022-07-01 11:10 | Day surgery (SDC) | payer MEDICARE, MEDICAID ==
[~2022-07-01] VITALS: Ht 172 cm; Wt 93.4 kg
[~2022-07-01 11:10] MED LIST changes: +ALBU0.63 IH; +ALBU8.5H9 IH; +AMLO-251 PO; +ATOR80TA76 PO; +BICT1TAB PO; +CREONC PO; +DEXL60CA PO; +DICL50TA6 PO; +DICY20TA PO; +DULO60CA59 PO; +ESCI10TA PO; +FLUT1BLS3 IH; +GABA-486 PO; +GLIM4TAB5 PO; +INSU100V5 SQ; +LORA10TA7 PO; +MELO15TA39 PO; +METO-333 PO; +METO5TAB2 PO; +MULT-1136 PO; +PROM25TA14 PO; +TRAM50TA3 PO
[2022-07-01] MEDS ORDERED: LACTATED RINGERS 1,000 ML IV STA (11:11)
[2022-07-01] MEDS ORDERED: LIDOCAINE JELLY 2% 6 ML SYRINGE MM PRN (11:15)
[2022-07-01] MEDS ORDERED: HURRICAINE EXT TUBE (BENZOCAINE) XX PRN (11:15)
--- NOTE | 2022-07-01 11:19 | Progress Note-Pre Operative ---
Pre-Operative Progress Note Date of Available H&P: Jul 01, 2022 Date H&P Reviewed: Jul 01, 2022 Time H&P Reviewed: 11:00 History & Physical: No changes noted Pre-Operative Diagnosis: GERD,dysphagia NEHA LOCKETT MD Jul 01, 2022 11:19
--- NOTE | 2022-07-01 11:20 | Discharge Inst-Surgical ---
D/C Lap Instructions-LEVY Follow Up Activity as tolerated High Fiber Diet 25g or more per day Avoid Alcohol, Caffeine, Spicy [place] and Acid foods. Drink 64 fluid oz or more of fluids per day. Symptoms to Report: Fever over 101 degree F, Nausea/Vomiting If any problems/questions: Contact your physician or go to Emergency Room NEHA LOCKETT MD Jul 01, 2022 11:20
[2022-07-01] MEDS ORDERED: ONDANSETRON 4 MG (ZOFRAN) ORAL DISSOLVE TAB PO PRN (11:30)
[2022-07-01] MEDS ORDERED: ONDANSETRON 4 MG/2 ML (SDV) Z0FRAN IVP PRN (11:30)
[2022-07-01 11:45] VITALS: BP 129/85
[2022-07-01] MEDS ORDERED: SCOPOLAMINE 1.5 MG (TRANSDERM-SCOP) PATCH TOP ONE (12:00)
[2022-07-01] MEDS ORDERED: ONDANSETRON 4 MG/2 ML (SDV) Z0FRAN IV ONE (12:00)
[2022-07-01] MEDS ORDERED: PROPOFOL INJECTION 50 ML IV ONE (14:58)
[2022-07-01] MEDS ORDERED: LACTATED RINGERS 1,000 ML IV ONE (14:58)
--- NOTE | 2022-07-01 15:33 | Anesthesia-General Post-Op ---
MAC Patient Condition Mental Status/LOC: Same as Preop Cardiovascular: Satisfactory Nausea/Vomiting: Absent Respiratory: Satisfactory Pain: Controlled Complications: Absent Post Op Complications Complications None Follow Up Care/Instructions Patient Instructions None needed. Anesthesiology Discharge Order Discharge Order Patient is doing well, no complaints, stable vital signs, no apparent adverse anesthesia problems. No complications reported per nursing. YOHANA HENDERSON CRNA Jul 01, 2022 15:33
[2022-07-01 15:35] VITALS: BP 115/57
[2022-07-01 15:40] VITALS: BP 121/68
--- NOTE | 2022-07-01 15:42 | Progress Note-Post Operative ---
Post-Operative Progess Note Surgeon (s)/Airport Electrician (s) Surgeon NEHA LOCKETT MD Airport Electrician: none Pre-Operative Diagnosis GERD,dysphagia Post-Operative Diagnosis reflux esophagitis(grad B-C), mild distal esophageal stricture, small recurrent HH(1cm), moderate gastritis. Procedure & Operative Findings Date of Procedure 07/01/22 Procedure Performed/Findings EGD with bx and balloon dilatation Anesthesia Type mac Estimated Blood Loss Estimated blood loss (mL): minimal Specimens/Packing Specimens Removed ge jxn, antrum NEHA LOCKETT MD Jul 01, 2022 15:42
[2022-07-01 15:45] VITALS: BP 121/68
[2022-07-01] MEDS ORDERED: PANT40TA52 PO (16:01)
[2022-07-01 16:15] VITALS: BP 121/68
--- NOTE | 2022-07-02 00:41 | OPERATIVE REPORT ---
DATE OF SERVICE: 07/01/2022 ATTENDING PRIMARY CARE PHYSICIAN: Dr. Jarret Gottlieb. PREOPERATIVE DIAGNOSES: Gastroesophageal reflux disease and dysphagia. POSTOPERATIVE DIAGNOSES: Reflux esophagitis between Swisher grade B and C, mild distal esophageal stricture, small recurrent hiatal hernia approximately 1 cm in size, moderate severity gastritis. No distal obstructions. PROCEDURE: EGD with biopsy and balloon dilatation. SURGEON: Neha Lockett MD. ANESTHESIA: Monitored anesthesia care. ESTIMATED BLOOD LOSS: Minimal. FINDINGS: Same as postoperative diagnosis. DISPOSITION: The patient tolerated the procedure well. INDICATIONS: The patient is a 61-year-old female known to us. She has had a history of gastroesophageal reflux disease and dysphagia. She underwent a [place] gastropexy in 2003. Since that time, she has had intermittent episodes of substernal chest pressure sensation after specific types of food boluses and this would persist and she would either regurgitate or reduced on its own. On 02/01/2015, she underwent an EGD and was found to have a distal esophageal stricture and she underwent a balloon dilatation. She reports that she has had recurrent episodes of dysphagia, which has been going on for the past 8 months. She does not report any ghazala episodes of nausea, no vomiting, as well as no hematemesis, no coffee ground emesis. She does have some risk factors including a history of smoking and caffeine intake. DESCRIPTION OF PROCEDURE: The patient was brought to the endoscopy suite, laid in left lateral decubitus position. After adequate IV pain and sedative medications and monitored anesthesia care, the mouthpiece was applied. The endoscope was placed in the mouth, visualizing the pharynx and hypopharyngeal region. Vocal cords, epiglottis and vallecula identified and appeared to be normal. The endoscope was then gently intubated into the esophageal opening and esophagus insufflated. The endoscope was then advanced to the first, second and third portion of esophagus at the level of the GE junction, a reflux esophagitis, Swisher between grade B and C identified with a mild distal esophageal stricture. A biopsy was taken with forceps with visualization of good hemostasis. The endoscope was then advanced into the stomach and endoscope retroflexed, visualizing small recurrent hiatal hernia approximately 1 cm in size. There was a moderate severity gastritis more towards the stomach antrum. No formal ulcerations, polyps, or any neoplasms. A biopsy was taken of the antrum to rule out H. pylori with visualization of good hemostasis. The endoscope was then advanced through the pylorus and the first and second portion of the duodenum, which appeared normal with no distal obstructions. The balloon was then placed into the stomach and pulled back to the area of the stricture. We then proceeded integrated stepwise fashion from 2, 4, then eventually 6 atmospheres of pressure or 20 mm in luminal diameter with moderate resistance and left this in place for approximately 60 seconds. The balloon was then desufflated and removed with visualization of good hemostasis as well as no mucosal tears. The endoscope was then slowly withdrawn while taking a second look and suctioning of residual air with no additional findings. The patient tolerated the procedure well. We will recommend continued medical management for her reflux and recurrent stricture, which would encompass the necessary lifestyle and dietary accommodation including small and more frequent meals, avoidance of eating at night as well as head elevation while lying supine. She was recently restarted on Protonix and our recommendation is that she continue to take this indefinitely. She also needs to proceed with cessation of both cigarette smoke as well as vaping and cessation at least moderation of alcohol and caffeinated beverages. Job ID: [id number] DocumentID: [id number] Dictated Date: 07/01/2022 15:37:42 [employer] Solution Architect Date: 07/02/2022 00:40:20 Dictated By: NEHA LOCKETT MD
[2022-07-04] MEDS ORDERED: SCOPOLAMINE PATCH REMOVAL TP SCH (12:00)
== END 2022-07-01 16:25 | disposition home or self-care (01) ==
LOC: ENDO 11:10
PROVIDERS: ATTEND Surgery
DX: K21.00 Gastro-esophageal reflux disease with esophagitis, without bleeding (principal); K22.2 Esophageal obstruction; K44.9 Diaphragmatic hernia without obstruction or gangrene; K29.50 Unspecified chronic gastritis without bleeding; E11.40 Type 2 diabetes mellitus with diabetic neuropathy, unspecified; F17.210 Nicotine dependence, cigarettes, uncomplicated; F17.290 Nicotine dependence, other tobacco product, uncomplicated; Z79.4 Long term (current) use of insulin; Z79.84 Long term (current) use of oral hypoglycemic drugs; Z79.899 Other long term (current) drug therapy; Z95.5 Presence of coronary angioplasty implant and graft; Z79.82 Long term (current) use of aspirin
CPT/HCPCS: 82947

== ENCOUNTER 2022-09-09 11:43 | Emergency (ER) | payer MEDICARE, MEDICAID ==
[~2022-09-09] VITALS: Ht 172 cm; Wt 89.3 kg
[~2022-09-09 11:43] MED LIST changes: +PANT40TA52 PO
--- NOTE | 2022-09-09 13:06 | Diagnostic Imaging Report ---
INDICATION: Cough and congestion. FINDINGS: The lungs are clear. No failure, effusion, or pneumothorax. IMPRESSION: No acute appearing abnormality. Dictated by: Dictated on workstation # [id number]
[2022-09-09] MEDS ORDERED: ACET-11 PO (13:29)
[2022-09-09] MEDS ORDERED: SULF-221 PO (13:29)
[2022-09-09] MEDS ORDERED: CEFU250T80 PO (13:29)
--- NOTE | 2022-09-09 13:29 | ED General ---
General Chief Complaint: Cough/Cold/Flu Symptoms Stated Complaint: CHEST CONGESTION | COUGH Nursing Triage Note: ARRIVED VIA AMB WITH COMPLAINTS OF COUGH/CONGESTION. STATES SHE IS NOW HAVING CHEST PAIN WITH HER COUGH. STATES SHE WOULD HAVE WENT TO HER DR BUT THEY CAN'T DRAW BLOOD FROM A PORT. PT NOTIIFED OF BUSY ER WITH POSSIBLE LONG WAIT TIME. Source of Information: Patient Exam Limitations: No Limitations History of Present Illness Date Seen by Provider: Sep 09, 2022 Time Seen by Provider: 13:26 Initial Comments To ER with a 1 week history of productive cough. She is HIV positive compliant with medications. Timing/Duration: 1-2 Days Severity: Moderate Associated Systoms: Denies Symptoms Allergies and Home Medications Allergies Coded Allergies: Penicillins (Unverified Allergy, Mild, ITCHING, 10/07/09) ciprofloxacin (Unverified Allergy, Mild, DIARRHEA, 10/07/09) diclofenac (Unverified Allergy, Mild, UPSET STOMACH, 10/07/09) fluticasone (Unverified Allergy, Mild, SWELLING, 10/07/09) levofloxacin (Unverified Allergy, Mild, DIARRHEA, 10/07/09) metformin (Unverified Allergy, Mild, COGNITIVE CHANGE, 10/07/09) misoprostol (Unverified Allergy, Mild, UPSET STOMACH, 10/07/09) nabumetone (Unverified Allergy, Mild, UPSET STOMACH, 10/07/09) pregabalin (Unverified Allergy, Mild, SWELING, 10/07/09) rofecoxib (Unverified Allergy, Mild, ULCERS, 10/07/09) salmeterol (Unverified Allergy, Mild, SWELLING, 10/07/09) diclofenac sodium (Unverified Allergy, Unknown, 02/01/15) fluticasone propionate (Unverified Allergy, Unknown, 02/01/15) hydrocodone (Verified Allergy, Unknown, 02/01/15) oxycodone (Verified Allergy, Unknown, 02/01/15) salmeterol xinafoate (Unverified Allergy, Unknown, 02/01/15) Patient Home Medication List Home Medication List Reviewed: Yes Albuterol Sulfate (Proair Hfa) 90 Mcg Hfa.aer.ad, 2 PUFF IH Q4H PRN for WHEE ZING, (Reported) Entered as Reported by: LUKE PETER on 06/24/22952 Albuterol Sulfate (Albuterol Sulfate) 0.63 Mg/3 Ml Vial.neb, 0.63 MG IH Q4H PRN for SHORTNESS OF BREATH, (Reported) Entered as Reported by: LUEK PETER on 06/24/22952 Amlodipine Besylate (Amlodipine Besylate) 10 Mg Tablet, 10 MG PO HS, (Reported) Entered as Reported by: LUKE PETER on 06/24/22956 Atorvastatin Calcium (Atorvastatin Calcium) 80 Mg Tablet, 80 MG PO HS, (Reported) Entered as Reported by: LUKE PETER on 06/24/22952 Bictegrav/Emtricit/Tenofov Ala (Biktarvy 50-200-25 mg Tablet) 50 Mg-200 Mg-25 Mg Tablet, 1 EACH PO HS, (Reported) Entered as Reported by: LUKE PETER on 06/24/22956 Clonidine HCl (Clonidine HCl) 0.1 Mg Tablet, 0.1 MG PO BID, (Reported) Entered as Reported by: LUKE PETER on 06/24/22956 Dexlansoprazole (Dexilant) 60 Mg Cap.bp, 60 MG PO HS, (Reported) Entered as Reported by: LUKE PETER on 06/24/22956 Diclofenac Sodium (Diclofenac Sodium) 50 Mg Tablet.dr, 50 MG PO HS, (Reported) Entered as Reported by: LUKE PETER on 06/24/22956 Dicyclomine HCl (Dicyclomine HCl) 20 Mg Tablet, 20 MG PO TID, (Reported) Entered as Reported by: LUKE PETER on 06/24/22952 Diphenoxylate HCl/Atropine (Diphenoxylate-Atrop 2.5-0.025) 2.5 Mg-0.025 Mg Tablet, 1 TAB PO UD, (Reported) Entered as Reported by: LUKE PETER on 06/24/22956 Duloxetine HCl (Duloxetine HCl) 60 Mg Capsule.dr, 60 MG PO HS, (Reported) Entered as Reported by: LUKE PETER on 06/24/22956 Escitalopram Oxalate (Lexapro) 10 Mg Tablet, 10 MG PO HS, (Reported) Entered as Reported by: LUKE PETER on 06/24/22956 Fluticasone/Umeclidin/Vilanter (Trelegy Ellipta 100-62.5-25) 100-62.5 Blst.w.dev, 1 EACH IH DAILY, (Reported) Entered as Reported by: LUKE PETER on 06/24/22956 Gabapentin (Gabapentin) 100 Mg Capsule, 100 MG PO TID, (Reported) Entered as Reported by: LUKE PETER on 06/24/22952 Glimepiride (Glimepiride) 4 Mg Tablet, 4 MG PO HS, (Reported) Entered as Reported by: LUKE PETER on 06/24/22956 Insulin Determir (Levemir) 100 Unit/Ml Soln, 0 SQ HS, (Reported) Entered as Reported by: LUKE PETER on 06/24/22952 Lipase/Amylase/Protease (Creon Dr 6,000 Units Capsule) 6K-19K-30K Cap, 3 EA PO TID, (Reported) Entered as Reported by: LUKE PETER on 06/24/22952 Loratadine (Loratadine) 10 Mg Tablet, 10 MG PO HS, (Reported) Entered as Reported by: LUKE PETER on 06/24/22956 Meloxicam (Meloxicam) 15 Mg Tablet, 15 MG PO HS, (Reported) Entered as Reported by: LUKE PETER on 06/24/22952 Metoclopramide HCl (Metoclopramide HCl) 5 Mg Tablet, 5 MG PO QID, (Reported) Entered as Reported by: LUKE PETER on 06/24/22956 Metoprolol Tartrate (Metoprolol Tartrate) 25 Mg Tablet, 25 MG PO HS, (Reported) Entered as Reported by: LUKE PETER on 06/24/22952 Multivitamin (Multivitamin) 1 Each Tablet, 1 EACH PO DAILY, (Reported) Entered as Reported by: LUKE PETER on 06/24/22952 Pantoprazole Sodium (Pantoprazole Sodium) 40 Mg Tablet.dr, 40 MG PO DAILY Prescribed by: LUKE PETER on 07/01/22 1601 Promethazine HCl (Promethazine Tablet) 25 Mg Tablet, 25 MG PO TID PRN for NAUSEA/VOMITING, (Reported) Entered as Reported by: LUKE PETER on 06/24/22 0953 Tramadol HCl (Tramadol HCl) 50 Mg Tablet, 50-100 MG PO Q4H PRN for PAIN-MILD (1- 4), (Reported) Entered as Reported by: LUKE PETER on 06/24/22 0953 Review of Systems Review of Systems Constitutional: see HPI EENTM: see HPI Respiratory: no symptoms reported Cardiovascular: no symptoms reported Genitourinary: no symptoms reported Musculoskeletal: no symptoms reported Skin: no symptoms reported Psychiatric/Neurological: See HPI Hematologic/Lymphatic: No Symptoms Reported Immunological/Allergic: no symptoms reported Past Hadsyxt-Yhymlq-Hcjvvt Hx Patient Social History Tobacco Use?: Yes Smoking Status: Current Everyday Smoker Substance use?: No Alcohol Use?: No Immunizations Up To Date Tetanus Booster (TDap): Unknown First/Initial COVID19 Vaccinat: YES Second COVID19 Vaccination Sukhwinder: YES Third COVID19 Vaccination Date: YES 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: [employer] Seasonal Allergies Seasonal Allergies: No Past Medical History Surgery/Hospitalization HX: SX: BILAT ANKLE REPLACEMENTS, L KNEE REPLACEMENT, BILAT CARPAL TUNNEL, BILAT CATARACTS, NERVE STIMULATOR, HIATAL HERNIA REPAIR, GALLBLADDER, HYST Surgeries: Yes (HIATAL HERNIA;R/L CTR;R HIP;bilat ANKLE;L KNEE TKR;SPINAL STIMULATOR) Abdominal, Bladder Surgery, Cardiac, Coronary Stent, Eye Surgery, Gallbladder, H ysterectomy, Oophorectomy, Orthopedic, Tubal Ligation Respiratory: Yes (COPD) Asthma, Chronic Bronchitis, COPD Cardiac: Yes (CHRONIC CHEST PAIN; CARDIAC CATHS WITH STENT X 03/2019 ) Angina, Coronary Artery Disease, High Cholesterol, Hypertension Neurological: Yes Neuropathy 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 ORTHO SURGERIES) Degenerate Disk Disease, Arthritis, Fibromyalgia, Chronic Back Pain Endocrine: Yes Diabetes, Insulin dep, Hypothyroidsim HEENT: Yes Cataract Hearing Impairment: Hard of Hearing Cancer: No Psychosocial: Yes Anxiety, Depression Integumentary: No Blood Disorders: Yes (HIV) Family Medical History Patient reports no known family medical history. PAST SURGICAL HISTORY: -MULTIPLE CARDIAC CATHS, WITH CARDIAC STENT X 1 03/2019 -LEFT TOTAL KNEE REPLACEMENT -RIGHT ANKLE SURGERY--ANKLE REPLACEMENT 2012 -LEFT ANKLE REPLACEMENT SURGERY -BILATERAL CARPAL TUNNEL SURGERY -SPINAL STIMULATOR -RIGHT HIP REPLACEMENT SURGERY -MULTIPLE KNEE ARTHROSCOPIES -HIATAL HERNIA REPAIR -HYSTERECTOMY -CHILECYSTECTOMY -BILATERAL CATARACT SURGERY -URETHRAL SLING 12/2012 Physical Exam Vital Signs Vital Signs - First Documented 09/09/22 11:50 Temp 36.5 Pulse 83 Resp 16 B/P (MAP) 143/79 (100) Pulse Ox 97 O2 Delivery Room Air Capillary Refill : Less Than 3 Seconds Height, Weight, BMI Height: 5'8.00" Weight: 210lbs. 1.6oz. 95.384362ry; 30.00 BMI Method:Estimated General Appearance: No Apparent Distress, WD/WN Eyes: Bilateral Eye Normal Inspection, Bilateral Eye PERRL, Bilateral Eye EOMI HEENT: PERRL/EOMI, TMs Normal Neck: Full Range of Motion, Normal Inspection Respiratory: Normal Breath Sounds, No Accessory Muscle Use, No Respiratory Distress Cardiovascular: Regular Rate, Rhythm, Normal Peripheral Pulses Gastrointestinal: Normal Bowel Sounds, Non Tender, Soft Extremity: Normal Capillary Refill, Normal Inspection Neurologic/Psychiatric: Alert, Oriented x3 Skin: Normal Color, Warm/Dry Procedures/Interventions Suture Size: 5-0 Progress/Results/Core Measures Suspected Sepsis SIRS Temperature: Pulse: 83 Respiratory Rate: 16 Blood Pressure 143 /79 Mean: 100 Results/Orders Lab Results Laboratory Tests Test 09/09/22 12:25 Range/Units Influenza Type A (RT-PCR) Not Detected Not Detecte Influenza Type B (RT-PCR) Not Detected Not Detecte SARS-CoV-2 RNA (RT-PCR) Not Detected Not Detecte My Orders Orders - PETE SEXTON APRN Chest 1 View, Ap/Pa Only (09/09/22 12:23) Covid 19 Inhouse Test (09/09/22 12:23) Influenza A And B By Pcr (09/09/22 12:25) Vital Signs/I&O 09/09/22 09/09/22 11:50 12:20 Temp 36.5 Pulse 83 Resp 16 B/P (MAP) 143/79 (100) Pulse Ox 97 O2 Delivery Room Air Room Air Capillary Refill : Less Than 3 Seconds Blood Pressure Mean: 100 Departure Impression Primary Impression: Bronchitis Disposition: 01 HOME, SELF-CARE Condition: Stable Departure-Patient Inst. Decision time for Depature: 13:27 Referrals: ANANT MONTOYA DO (PCP/Family) Primary Care Physician Patient Instructions: Acute Bronchitis, Adult (DC) Add. Discharge Instructions: 1. Antibiotics and cough medication as directed return to ER for any concerns follow-up with your doctor next week. All discharge instructions reviewed with patient and/or family. Voiced understanding. Scripts Acetaminophen with Codeine (Acetaminophen-Cod #3 Tablet) 300 Mg-30 Mg Tablet 1 EACH PO Q6H PRN for COUGH for 7 Days, #14 TAB Prov: PETE SEXTON APRN 09/09/22 Cefuroxime Axetil (Cefuroxime) 250 Mg Tablet 250 MG PO BID, #10 TAB Prov: PETE SEXTON APRN 09/09/22 Sulfamethoxazole/Trimethoprim (Bactrim Ds Tablet) 800 Mg-160 Mg Tablet 1 EACH PO BID, #14 TAB Prov: PETE SEXTON APRN 09/09/22 Work/School Note: Work Release Form Date Seen in the Emergency Department: Sep 09, 2022 Return to Work: Sep 11, 2022 PETE SEXTON APRN Sep 09, 2022 13:29
[2022-09-09 13:38] VITALS: BP 143/79
== END 2022-09-09 13:37 | disposition home or self-care (01) ==
LOC: EDUNIT# 11:43 → ER 11:45
DX: J40 Bronchitis, not specified as acute or chronic (principal); B20 Human immunodeficiency virus [HIV] disease; F17.200 Nicotine dependence, unspecified, uncomplicated; Z88.0 Allergy status to penicillin; Z88.5 Allergy status to narcotic agent; Z20.822 Contact with and (suspected) exposure to COVID-19
CPT/HCPCS: 71045; 87636

== ENCOUNTER → 2023-02-24 | Outpatient (CLI) | payer MEDICARE, MEDICAID ==
[~2023-02-24] MED LIST changes: +ACET-11 PO; +CEFU250T80 PO; +SULF-221 PO
--- NOTE | 2023-02-24 15:56 | Diagnostic Imaging Report ---
PROCEDURE: US Bilateral lower extremity arterial. TECHNIQUE: Multiple real-time grayscale images are obtained through both lower extremity arterial systems with color Doppler imaging and color Doppler spectral analysis. INDICATION: Bilateral leg pain. COMPARISON: None. FINDINGS: There is mild atherosclerosis in the bilateral lower extremities. RIGHT LOWER EXTREMITY: The right common femoral artery has a triphasic waveform and measures 108 cm/s. The deep femoral artery has a triphasic waveform and measures 71 cm/s. There is a biphasic waveform throughout the remainder of the right lower extremity. The superficial femoral artery ranges between 61 and 75 cm/s. The popliteal artery measures 60 cm/s. The posterior tibial artery measures 44 cm/s. The dorsalis pedis measures 16 cm/s. LEFT LOWER EXTREMITY: There is a biphasic waveform throughout the left lower extremity. The common femoral artery measures 104 cm/s. The deep femoral artery measures 51 cm/s. The superficial femoral artery ranges between 66 and 79 cm/s. The popliteal artery measures 93 cm/s. The posterior tibial artery measures 67 cm/s. The dorsalis pedis measures 62 cm/s. IMPRESSION: 1. Mild atherosclerosis with no high-grade arterial stenosis or occlusion in the bilateral lower extremities. Dictated by: Dictated on workstation # [id number]
--- NOTE | 2023-02-24 20:05 | Diagnostic Imaging Report ---
INDICATION: Screening. EXAMINATION: Bilateral 3D screening mammogram with CAD. The current study was also evaluated with a Computer Aided Detection (CAD) system. COMPARISON: 02/20/2022 and 01/24/2021. FINDINGS: There is mild to moderate breast parenchymal density, bilaterally. No new dominant mass or suspicious calcification is identified. Overall, there has been no adverse change. IMPRESSION: Negative mammograms. Physical examination and annual mammographic follow-up are recommended. ACR BI-RADS Category 1: Negative. Result letter will be mailed to the patient. Note: At least 10% of breast cancer is not imaged by mammography. Dictated by: Dictated on workstation # [id number]
== END ==
LOC: RAD 11:56
PROVIDERS: ATTEND Nurse Practitioner Family
DX: Z12.31 Encounter for screening mammogram for malignant neoplasm of breast (principal); I70.90 Unspecified atherosclerosis; M79.604 Pain in right leg; M79.605 Pain in left leg
CPT/HCPCS: 77063; 77067; 93925

== ENCOUNTER → 2023-04-14 | Outpatient (CLI) | payer MEDICARE, MEDICAID ==
[~2023-04-14] MED LIST changes: +RT-ALBUTEROL SULF 2.5 MG/3 ML PRE-MIX VIAL INH ONE
== END ==
LOC: RT 12:31
PROVIDERS: ATTEND Nurse Practitioner Family
DX: J45.40 Moderate persistent asthma, uncomplicated (principal)
CPT/HCPCS: 94060; 94726; 94729

== ENCOUNTER 2023-06-16 20:02 | Emergency (ER) | payer MEDICARE, MEDICAID ==
[~2023-06-16] VITALS: Ht 172.7 cm; Wt 83.9 kg
[~2023-06-16 20:02] MED LIST changes: -RT-ALBUTEROL SULF 2.5 MG/3 ML PRE-MIX VIAL INH ONE
[2023-06-16] MEDS ORDERED: ASPIRIN 81 MG CHEWABLE TABLET PO ONE (20:15)
[2023-06-16 22:09] LABS: BASOPHILS # (AUTO) 0.1 10^3/uL (0.0-0.1); BASOPHILS % (AUTO) 1 % (0-10); EOSINOPHILS # (AUTO) 0.2 10^3/uL (0.0-0.3); EOSINOPHILS % (AUTO) 2 % (0-10); HEMATOCRIT 44 % (35-52); HEMOGLOBIN 14.9 g/dL (11.5-16.0); LYMPHOCYTES # (AUTO) 4.1 10^3/uL (1.0-4.0); LYMPHOCYTES % (AUTO) 28 % (12-44); MEAN CORPUSCULAR HEMOGLOBIN 28 pg (25-34); MEAN CORPUSCULAR HGB CONC 34 g/dL (32-36); MEAN CORPUSCULAR VOLUME 84 fL (80-99); MEAN PLATELET VOLUME 9.4 fL (9.0-12.2); MONOCYTES % (AUTO) 7 % (0-12); NEUTROPHILS % (AUTO) 62 % (42-75); PLATELET COUNT 326 10^3/uL (130-400); WHITE BLOOD COUNT 14.6 10^3/uL (4.3-11.0)
--- NOTE | 2023-06-16 22:19 | Diagnostic Imaging Report ---
INDICATION: Chest pain. EXAMINATION: Single AP view of the chest was obtained. FINDINGS: Since 09/09/2022, overall heart size and pulmonary vascularity remain within normal limits. Small bore catheter is seen in the left subclavian region reaching the mid superior vena cava. No pneumothorax is identified. There is no significant pleural fluid. IMPRESSION: No acute abnormality. Dictated by: Dictated on workstation # [id number]
[2023-06-16 22:21] LABS: ALBUMIN 4.1 GM/DL (3.2-4.5); CHLORIDE 104 MMOL/L (98-107); POTASSIUM 3.9 MMOL/L (3.6-5.0); SODIUM 137 MMOL/L (135-145)
[2023-06-16 22:23] LABS: AMYLASE 57 U/L (25-125); CALCIUM 8.8 MG/DL (8.5-10.1)
[2023-06-16 22:24] LABS: GLUCOSE 142 MG/DL (70-105); TOTAL PROTEIN 6.8 GM/DL (6.4-8.2)
[2023-06-16 22:25] LABS: CARBON DIOXIDE 23 MMOL/L (21-32); FIBRIN DEGRADATION PRODUCTS 1.25 UG/ML (0.00-0.49)
[2023-06-16 22:26] LABS: BILIRUBIN,TOTAL 0.9 MG/DL (0.1-1.0)
[2023-06-16 22:27] LABS: ALKALINE PHOSPHATASE 85 U/L (40-136); CREATININE SERUM 0.78 MG/DL (0.60-1.30); GFR ESTIMATED 86
[2023-06-16] MEDS ORDERED: ASPIRIN 81 MG CHEWABLE TABLET ONE (22:27)
[2023-06-16 22:29] LABS: BUN/CREATININE RATIO 14
[2023-06-16 22:30] LABS: ALANINE AMINOTRANSFERASE 55 U/L (0-55); MAGNESIUM 2.2 MG/DL (1.6-2.4)
[2023-06-16 22:31] LABS: LIPASE 40 U/L (8-78)
[2023-06-16 22:32] LABS: CREATINE KINASE 61 U/L (29-168)
[2023-06-16 22:38] LABS: CREATINE KINASE MB 0.7 NG/ML (<6.6)
[2023-06-16] MEDS ORDERED: morphine INJ 4 MG/ML 1 ML (VIAL/SYRINGE) IVP ONE (22:45)
[2023-06-16] MEDS ORDERED: PANTOPRAZOLE INJECTION 40 MG VIAL IV ONE (22:45)
[2023-06-16 23:11] LABS: EOSINOPHILS % (MANUAL) 1 %; LYMPHOCYTES % (MANUAL) 26 %; MONOCYTES % (MANUAL) 5 %; NEUTROPHILS % (MANUAL) 58 %; PLATELET ESTIMATE ADEQUATE; RBC MORPH NORMAL; REACTIVE LYMPHOCYTES 2 %
--- NOTE | 2023-06-17 01:34 | ED Chest Pain ---
General Chief Complaint: Chest Pain Stated Complaint: CP Nursing Triage Note: PT ARRIVED POV WITH CC OF CP THAT STARTED AT 1745. PT STATES THAT IT FEELS HEAVY. PT TOOK 3 NITRO AND 1 ASA THIS EVENING. Source: patient History of Present Illness Date Seen by Provider: Jun 16, 2023 Allergies and Home Medications Allergies Coded Allergies: Penicillins (Unverified Allergy, Mild, ITCHING, 10/07/09) ciprofloxacin (Unverified Allergy, Mild, DIARRHEA, 10/07/09) diclofenac (Unverified Allergy, Mild, UPSET STOMACH, 10/07/09) fluticasone (Unverified Allergy, Mild, SWELLING, 10/07/09) levofloxacin (Unverified Allergy, Mild, DIARRHEA, 10/07/09) metformin (Unverified Allergy, Mild, COGNITIVE CHANGE, 10/07/09) misoprostol (Unverified Allergy, Mild, UPSET STOMACH, 10/07/09) nabumetone (Unverified Allergy, Mild, UPSET STOMACH, 10/07/09) pregabalin (Unverified Allergy, Mild, SWELING, 10/07/09) rofecoxib (Unverified Allergy, Mild, ULCERS, 10/07/09) salmeterol (Unverified Allergy, Mild, SWELLING, 10/07/09) diclofenac sodium (Unverified Allergy, Unknown, 02/01/15) fluticasone propionate (Unverified Allergy, Unknown, 02/01/15) hydrocodone (Verified Allergy, Unknown, 02/01/15) oxycodone (Verified Allergy, Unknown, 02/01/15) salmeterol xinafoate (Unverified Allergy, Unknown, 02/01/15) Patient Home Medication List Acetaminophen with Codeine (Acetaminophen-Cod #3 Tablet) 300 Mg-30 Mg Tablet, 1 EACH PO Q6H PRN for COUGH Prescribed by: PETE SEXTON on 09/09/22 1329 Albuterol Sulfate (Proair Hfa) 90 Mcg Hfa.aer.ad, 2 PUFF IH Q4H PRN for WHEEZING, (Reported) Entered as Reported by: LUKE PETER on 06/24/22 0953 Albuterol Sulfate (Albuterol Sulfate) 0.63 Mg/3 Ml Vial.neb, 0.63 MG IH Q4H PRN for SHORTNESS OF BREATH, (Reported) Entered as Reported by: LUKE PETER on 06/24/22952 Amlodipine Besylate (Amlodipine Besylate) 10 Mg Tablet, 10 MG PO HS, (Reported) Entered as Reported by: LUKE PETER on 06/24/22956 Atorvastatin Calcium (Atorvastatin Calcium) 80 Mg Tablet, 80 MG PO HS, (Reported) Entered as Reported by: LUKE PETER on 06/24/22952 Bictegrav/Emtricit/Tenofov Ala (Biktarvy 50-200-25 mg Tablet) 50 Mg-200 Mg-25 Mg Tablet, 1 EACH PO HS, (Reported) Entered as Reported by: LUKE PETER on 06/24/22956 Cefuroxime Axetil (Cefuroxime) 250 Mg Tablet, 250 MG PO BID Prescribed by: PETE SEXTON on 09/09/22 1329 Clonidine HCl (Clonidine HCl) 0.1 Mg Tablet, 0.1 MG PO BID, (Reported) Entered as Reported by: LUKE PETER on 06/24/22956 Dexlansoprazole (Dexilant) 60 Mg Cap..bp, 60 MG PO HS, (Reported) Entered as Reported by: LUKE PETER on 06/24/22956 Diclofenac Sodium (Diclofenac Sodium) 50 Mg Tablet.dr, 50 MG PO HS, (Reported) Entered as Reported by: LUKE PETER on 06/24/22956 Dicyclomine HCl (Dicyclomine HCl) 20 Mg Tablet, 20 MG PO TID, (Reported) Entered as Reported by: LUKE PETER on 06/24/22952 Diphenoxylate HCl/Atropine (Diphenoxylate-Atrop 2.5-0.025) 2.5 Mg-0.025 Mg Tablet, 1 TAB PO UD, (Reported) Entered as Reported by: LUKE PETER on 06/24/22956 Duloxetine HCl (Duloxetine HCl) 60 Mg Capsule.dr, 60 MG PO HS, (Reported) Entered as Reported by: LUKE PETER on 06/24/22956 Escitalopram Oxalate (Lexapro) 10 Mg Tablet, 10 MG PO HS, (Reported) Entered as Reported by: LUKE PETER on 06/24/22956 Fluticasone/Umeclidin/Vilanter (Trelegy Ellipta 100-62.5-25) 100-62.5 Blst.w.dev, 1 EACH IH DAILY, (Reported) Entered as Reported by: LUKE PETER on 06/24/22956 Gabapentin (Gabapentin) 100 Mg Capsule, 100 MG PO TID, (Reported) Entered as Reported by: LUKE PETER on 06/24/22952 Glimepiride (Glimepiride) 4 Mg Tablet, 4 MG PO HS, (Reported) Entered as Reported by: LUKE PETER on 06/24/22956 Insulin Determir (Levemir) 100 Unit/Ml Soln, 0 SQ HS, (Reported) Entered as Reported by: LUKE PETER on 06/24/22952 Lipase/Amylase/Protease (Creon Dr 6,000 Units Capsule) 6K-19K-30K Cap, 3 EA PO TID, (Reported) Entered as Reported by: LUKE PETER on 06/24/22952 Loratadine (Loratadine) 10 Mg Tablet, 10 MG PO HS, (Reported) Entered as Reported by: LUKE PETER on 06/24/22956 Meloxicam (Meloxicam) 15 Mg Tablet, 15 MG PO HS, (Reported) Entered as Reported by: LUKE PETER on 06/24/22952 Metoclopramide HCl (Metoclopramide HCl) 5 Mg Tablet, 5 MG PO QID, (Reported) Entered as Reported by: LUKE PETER on 06/24/22956 Metoprolol Tartrate (Metoprolol Tartrate) 25 Mg Tablet, 25 MG PO HS, (Reported) Entered as Reported by: LUKE PETER on 06/24/22952 Multivitamin (Multivitamin) 1 Each Tablet, 1 EACH PO DAILY, (Reported) Entered as Reported by: LUKE PETER on 06/24/22952 Pantoprazole Sodium (Pantoprazole Sodium) 40 Mg Tablet.dr, 40 MG PO DAILY Prescribed by: LUKE PETER on 07/01/22 1601 Promethazine HCl (Promethazine Tablet) 25 Mg Tablet, 25 MG PO TID PRN for NAUSEA/VOMITING, (Reported) Entered as Reported by: LUKE PETER on 06/24/22 0953 Sulfamethoxazole/Trimethoprim (Bactrim Ds Tablet) 800 Mg-160 Mg Tablet, 1 EACH PO BID Prescribed by: PETE SEXTON on 09/09/22 1329 Tramadol HCl (Tramadol HCl) 50 Mg Tablet, 50-100 MG PO Q4H PRN for PAIN-MILD (1- 4), (Reported) Entered as Reported by: LUKE PETER on 06/24/22 0953 Past Zerowgd-Ezrjdd-Inxbik Hx Patient Social History Tobacco Use?: Yes Tobacco type used: Cigarettes Substance use?: No Alcohol Use?: Yes Alcohol Frequency: Once in a while Immunizations Up To Date Tetanus Booster (TDap): Unknown First/Initial COVID19 Vaccinat: UNKNOWN Second COVID19 Vaccination Sukhwinder: UNKNOWN Third COVID19 Vaccination Date: UNKNOWN Seasonal Allergies Seasonal Allergies: No Past Medical History Surgery/Hospitalization HX: SX: BILAT ANKLE REPLACEMENTS, L KNEE REPLACEMENT, BILAT CARPAL TUNNEL, BILAT CATARACTS, NERVE STIMULATOR, HIATAL HERNIA REPAIR, GALLBLADDER, HYST Surgeries: Yes (HIATAL HERNIA;R/L CTR;R HIP;bilat ANKLE;L KNEE TKR;SPINAL STIMULATOR) Abdominal, Bladder Surgery, Cardiac, Coronary Stent, Eye Surgery, Gallbladder, Hysterectomy, Oophorectomy, Orthopedic, Tubal Ligation Respiratory: Yes (COPD) Asthma, Chronic Bronchitis, COPD Cardiac: Yes (CHRONIC CHEST PAIN; CARDIAC CATHS WITH STENT X 03/2019 ) Angina, Coronary Artery Disease, High Cholesterol, Hypertension Neurological: Yes Neuropathy HEAD OF ACQUISITIONS History: Hysterectomy, Menopausal HIV/AIDS: Yes Genitourinary: No Gastrointestinal: Yes (S/P HIATAL HERNIA REPAIR) Gastroesophageal Reflux, Pancreatitis, Hiatal Hernia, Irritable Bowel Musculoskeletal: Yes (CHRONIC GENERALIZED PAIN; SPINAL STIMULATOR;MULT. ORTHO SURGERIES) Degenerate Disk Disease, Arthritis, Fibromyalgia, Chronic Back Pain Endocrine: Yes Diabetes, Insulin dep, Hypothyroidsim HEENT: Yes Cataract Hearing Impairment: Hard of Hearing Cancer: No Psychosocial: Yes Anxiety, Depression Integumentary: No Blood Disorders: Yes (HIV) Family Medical History Patient reports no known family medical history. PAST SURGICAL HISTORY: -MULTIPLE CARDIAC CATHS, WITH CARDIAC STENT X 1 03/2019 -LEFT TOTAL KNEE REPLACEMENT -RIGHT ANKLE SURGERY--ANKLE REPLACEMENT 2012 -LEFT ANKLE REPLACEMENT SURGERY -BILATERAL CARPAL TUNNEL SURGERY -SPINAL STIMULATOR -RIGHT HIP REPLACEMENT SURGERY -MULTIPLE KNEE ARTHROSCOPIES -HIATAL HERNIA REPAIR -HYSTERECTOMY -CHILECYSTECTOMY -BILATERAL CATARACT SURGERY -URETHRAL SLING 12/2012 Physical Exam Vital Signs Vital Signs - First Documented 06/16/23 22:35 Pulse 71 B/P (MAP) 122/92 (102) Pulse Ox 95 O2 Delivery Room Air Capillary Refill : Height, Weight, BMI Height: 5'8.00" Weight: 210lbs. 1.6oz. 95.903190uq; 28.00 BMI Method:Estimated Procedures/Interventions Suture Size: 5-0 Progress/Results/Core Measures Results/Orders Lab Results Laboratory Tests Test 06/16/23 22:03 06/16/23 22:34 06/17/23 01:08 Range/Units White Blood Count 14.6 H 4.3-11.0 10^3/uL Red Blood Count 5.27 H 3.80-5.11 10^6/uL Hemoglobin 14.9 11.5-16.0 g/dL Hematocrit 44 35-52 % Mean Corpuscular Volume 84 80-99 fL Mean Corpuscular Hemoglobin 28 25-34 pg Mean Corpuscular Hemoglobin Concent 34 32-36 g/dL Red Cell Distribution Width 14.5 10.0-14.5 % Platelet Count 326 130-400 10^3/uL Mean Platelet Volume 9.4 9.0-12.2 fL Immature Granulocyte % (Auto) 1 % Neutrophils (%) (Auto) 62 42-75 % Lymphocytes (%) (Auto) 28 12-44 % Monocytes (%) (Auto) 7 0-12 % Eosinophils (%) (Auto) 2 0-10 % Basophils (%) (Auto) 1 0-10 % Neutrophils # (Auto) 9.0 H 1.8-7.8 10^3/uL Lymphocytes # (Auto) 4.1 H 1.0-4.0 10^3/uL Monocytes # (Auto) 1.0 0.0-1.0 10^3/uL Eosinophils # (Auto) 0.2 0.0-0.3 10^3/uL Basophils # (Auto) 0.1 0.0-0.1 10^3/uL Immature Granulocyte # (Auto) 0.1 0.0-0.1 10^3/uL Neutrophils % (Manual) 58 % Lymphocytes % (Manual) 26 % Monocytes % (Manual) 5 % Eosinophils % (Manual) 1 % Reactive Lymphocytes 2 % Platelet Estimate ADEQUATE Blood Morphology Comment NORMAL Prothrombin Time 13.0 12.2-14.7 SEC INR Comment 1.0 0.8-1.4 Activated Partial Thromboplast Time 67 H 24-35 SEC D-Dimer 1.25 H 0.00-0.49 UG/ML Sodium Level 137 135-145 MMOL/L Potassium Level 3.9 3.6-5.0 MMOL/L Chloride Level 104 98-107 MMOL/L Carbon Dioxide Level 23 21-32 MMOL/L Anion Gap 10 5-14 MMOL/L Blood Urea Nitrogen 11 7-18 MG/DL Creatinine 0.78 0.60-1.30 MG/DL Estimat Glomerular Filtration Rate 86 BUN/Creatinine Ratio 14 Glucose Level 142 H 70-105 MG/DL Calcium Level 8.8 8.5-10.1 MG/DL Corrected Calcium 8.7 8.5-10.1 MG/DL Magnesium Level 2.2 1.6-2.4 MG/DL Total Bilirubin 0.9 0.1-1.0 MG/DL Aspartate Amino Transf (AST/SGOT) 96 H 5-34 U/L Alanine Aminotransferase (ALT/SGPT) 55 0-55 U/L Alkaline Phosphatase 85 40-136 U/L Total Creatine Kinase 61 29-168 U/L Creatine Kinase MB 0.7 <6.6 NG/ML Myoglobin 30.0 10.0-92.0 NG/ML Troponin I < 0.028 < 0.028 <0.028 NG/ML B-Type Natriuretic Peptide 39.9 <100.0 PG/ML Total Protein 6.8 6.4-8.2 GM/DL Albumin 4.1 3.2-4.5 GM/DL Amylase Level 57 25-125 U/L Lipase 40 8-78 U/L Influenza Type A (RT-PCR) Not Detected Not Detecte Influenza Type B (RT-PCR) Not Detected Not Detecte SARS-CoV-2 RNA (RT-PCR) Not Detected Not Detecte My Orders Orders - DAVID BOLDEN DO Ekg Tracing (06/16/23 20:04) Cbc With Automated Diff (06/16/23 20:05) Magnesium (06/16/23 20:05) Chest 1 View, Ap/Pa Only (06/16/23 20:05) Ekg Tracing (06/16/23 20:05) Comprehensive Metabolic Panel (06/16/23 20:05) Myoglobin Serum (06/16/23 20:05) Protime With Inr (06/16/23 20:05) Partial Thromboplastin Time (06/16/23 20:05) O2 (06/16/23 20:05) Monitor-Rhythm Ecg Trace Only (06/16/23 20:05) Ed Iv/Invasive Line Start (06/16/23 20:05) Creatine Kinase (06/16/23 20:05) Creatine Kinase Mb (06/16/23 20:05) Lipase (06/16/23 20:05) Amylase (06/16/23 20:05) Bnp Saulo (06/16/23 20:05) Fibrin Degradation Products (06/16/23 20:05) Troponin I [place] (06/16/23 20:05) Aspirin Chewable Tablet (Aspirin Chewabl (06/16/23 20:15) Covid 19 Inhouse Test (06/16/23 20:05) Influenza A And B By Pcr (06/16/23 20:05) Manual Differential (06/16/23 22:03) Aspirin Chewable Tablet (Aspirin Chewabl (06/16/23 22:27) Pantoprazole Injection (Pantoprazole Inj (06/16/23 22:45) Morphine Injection (Morphine Injection (06/16/23 22:45) Ct Radha Chest/Noang Abd-Pelv W (06/16/23 22:41) Troponin I Saulo (06/17/23 00:42) Ekg Tracing (06/17/23 00:42) Medications Given in ED Current Medications Medications Dose Ordered Sig/Alcides Route Start Time Stop Time Status Last Admin Dose Admin Aspirin 324 mg ONCE ONCE PO 06/16/23 20:15 06/16/23 20:16 DC 06/16/23 22:29 324 MG Morphine Sulfate 4 mg ONCE ONCE IVP 06/16/23 22:45 06/16/23 22:46 DC 06/16/23 22:52 4 MG Pantoprazole 40 mg ONCE ONCE IV 06/16/23 22:45 06/16/23 22:46 DC 06/16/23 22:51 40 MG Vital Signs/I&O 06/16/23 22:35 Pulse 71 B/P (MAP) 122/92 (102) Pulse Ox 95 O2 Delivery Room Air Blood Pressure Mean: 102 Departure Impression Primary Impression: Chest pain Additional Impression: Gastroesophageal reflux disease Disposition: HOME, SELF-CARE Condition: Improved Departure-Patient Inst. Decision time for Depature: 01:42 Referrals: ANANT MONTOYA DO (PCP/Family) Primary Care Physician Patient Instructions: Acid reflux and gastroesophageal reflux disease in adults, Chest Pain (DC) Add. Discharge Instructions: CONTINUE YOUR MEDICATIONS PRESCRIBED FOLLOW UP WITH YOUR NURSE EDUCATOR AND DR. MONTOYA FOR FURTHER CARE--CALL IN THE MORNING TO SCHEDULE AN APPOINTMENT RETURN TO ER IF WORSE All discharge instructions reviewed with patient and/or family. Voiced understanding. Scripts Sucralfate (Carafate) 1 Gram Tablet 1 GM PO QID, #60 TAB Prov: DAVID BOLDEN DO 06/17/23 Pantoprazole Sodium (Protonix) 40 Mg Tablet. 40 MG PO DAILY, #15 TAB Prov: DAVID BOLDEN DO 06/17/23 DAVID BOLDEN DO Jun 17, 2023 01:34
[2023-06-17] MEDS ORDERED: NS 100 ML (IVPB) BAG IV ONE (01:45)
[2023-06-17] MEDS ORDERED: HOLD METFORMIN - RECEIVED CONTRAST 20 ML VIAL IV SCH (01:45)
[2023-06-17] MEDS ORDERED: IOHEXOL 350 MG/ML 100 ML (OMNIPAQUE 350) VIAL IV ONE (01:45)
[2023-06-17] MEDS ORDERED: SUCR1TAB36 PO (01:48)
[2023-06-17] MEDS ORDERED: PANT40TA2 PO (01:48)
[2023-06-17 01:49] VITALS: BP 131/77
--- NOTE | 2023-06-17 10:38 | Diagnostic Imaging Report ---
EXAMINATION: CT angiography of the chest, CT of the abdomen and pelvis. TECHNIQUE: Contrast enhanced thin section helical images were obtained through the chest, abdomen and pelvis with intravenous contrast timed for the optimal opacification of the arterial structures of the chest per CTA protocol. Post-processing, reconstructions and interpretation of angiographic images of the vessels was performed. 3D MIP reconstructions were performed and reviewed. All CT scans use one or more of the following dose optimizing techniques: automated exposure control, MA and/or KvP adjustment based on a patient size and exam type, or iterative reconstruction. HISTORY: Chest and abdominal pain COMPARISON: None available. FINDINGS: Vascular: There are no filling defects within the pulmonary arteries. There are vascular calcifications of the aorta and coronary vessels without aneurysm. Thyroid: The thyroid is normal. Mediastinum: Heart size is normal without significant pericardial effusion. No suspicious lymphadenopathy. Lungs and airways: The lungs are clear without consolidation, pleural effusion, or pneumothorax. There is atelectasis within the dependent lungs. The airways are normal. Solid organs: The liver is normal without focal lesion. The gallbladder is surgically absent. There is mild biliary ductal dilatation which may be secondary to reservoir effect from prior cholecystectomy. Pancreas is normal. Spleen is normal. Adrenal glands are normal. The kidneys are normal without hydronephrosis. Bowel: The stomach and small bowel are normal without obstruction. There is fluid seen throughout the colon which can be seen with diarrheal state. The appendix is normal. Peritoneum: There is no intraperitoneal free fluid or free air. No suspicious lymphadenopathy. Vasculature: Calcification of the aorta without aneurysm. Musculoskeletal: Degenerative changes of the spine without suspicious osseous lesion or compression fracture. Surgical changes from right hip arthroplasty. Bilateral spinal stimulator device is within the flanks. Pelvis: The uterus is surgically absent. No adnexal mass. The urinary bladder is normal. IMPRESSION: 1. No acute abnormality in the abdomen or pelvis. 2. No findings of pulmonary embolus or other acute abnormality in the chest. 3. Agree with preliminary interpretation. Dictated by: Dictated on workstation # [id number]
== END 2023-06-17 01:51 | disposition home or self-care (01) ==
LOC: EDUNIT# 20:02 → ER 20:03
DX: R07.89 Other chest pain (principal); K21.9 Gastro-esophageal reflux disease without esophagitis; E11.9 Type 2 diabetes mellitus without complications; F17.210 Nicotine dependence, cigarettes, uncomplicated; Z79.4 Long term (current) use of insulin; Z20.822 Contact with and (suspected) exposure to COVID-19
CPT/HCPCS: 36415; 71045; 71275; 74177; 80053; 82150; 82550; 82553; 83690; 83735; 83874; 83880; 84484; 85007; 85027; 85379; 85610; 85730; 87636; 93005; 93041

== ENCOUNTER → 2023-07-16 | Outpatient (CLI) | payer MEDICARE, MEDICAID ==
[~2023-07-16] VITALS: Wt 83.9 kg
[~2023-07-16] MED LIST changes: +PANT40TA2 PO; +SUCR1TAB36 PO
[2023-07-16 13:34] LABS: BASOPHILS # (AUTO) 0.1 10^3/uL (0.0-0.1); BASOPHILS % (AUTO) 1 % (0-10); EOSINOPHILS # (AUTO) 0.5 10^3/uL (0.0-0.3); EOSINOPHILS % (AUTO) 4 % (0-10); HEMATOCRIT 45 % (35-52); HEMOGLOBIN 14.7 g/dL (11.5-16.0); LYMPHOCYTES # (AUTO) 4.8 10^3/uL (1.0-4.0); LYMPHOCYTES % (AUTO) 42 % (12-44); MEAN CORPUSCULAR HEMOGLOBIN 28 pg (25-34); MEAN CORPUSCULAR HGB CONC 33 g/dL (32-36); MEAN CORPUSCULAR VOLUME 84 fL (80-99); MEAN PLATELET VOLUME 9.4 fL (9.0-12.2); MONOCYTES # (AUTO) 0.8 10^3/uL (0.0-1.0); MONOCYTES % (AUTO) 7 % (0-12); NEUTROPHILS # (AUTO) 5.4 10^3/uL (1.8-7.8); NEUTROPHILS % (AUTO) 46 % (42-75); PLATELET COUNT 404 10^3/uL (130-400); WHITE BLOOD COUNT 11.5 10^3/uL (4.3-11.0)
[2023-07-16 13:39] VITALS: BP 176/84
[2023-07-16 13:43] LABS: CLARITY,URINE CLEAR; COLOR,URINE YELLOW; GLUCOSE, URINE (UA) NEGATIVE (NEGATIVE); PROTEIN,URINE NEGATIVE (NEGATIVE)
[2023-07-16 13:44] LABS: BACTERIA,URINE LARGE /HPF; BILIRUBIN,URINE NEGATIVE (NEGATIVE); KETONES,URINE NEGATIVE (NEGATIVE); LEUKOCYTE ESTERASE ,URINE NEGATIVE (NEGATIVE); NITRITE,URINE POSITIVE (NEGATIVE); WBC,URINE 0-2 /HPF
[2023-07-16 13:45] LABS: POTASSIUM 4.2 MMOL/L (3.6-5.0)
[2023-07-16 13:48] LABS: INR 0.9 (0.8-1.4); PROTHROMBIN TIME PATIENT 12.6 SEC (12.2-14.7)
[2023-07-16 13:51] LABS: CREATININE SERUM 0.75 MG/DL (0.60-1.30)
== END ==
LOC: SDC 12:57
PROVIDERS: ATTEND Orthopaedic Surgery
DX: Z01.812 Encounter for preprocedural laboratory examination (principal); M79.601 Pain in right arm; R53.83 Other fatigue; Z22.322 Carrier or suspected carrier of Methicillin resistant Staphylococcus aureus
CPT/HCPCS: 36415; 36591; 80048; 81000; 85025; 85610; 87081; 87088

== ENCOUNTER 2023-09-08 11:12 | Outpatient (RCR) | payer MEDICARE, MEDICAID | END 2023-09-09 | disposition home or self-care (01) | PROVIDERS: ATTEND Orthopaedic Surgery | DX: E11.9 Type 2 diabetes mellitus without complications (principal); I10 Essential (primary) hypertension; Z96.611 Presence of right artificial shoulder joint ==

== ENCOUNTER 2023-09-17 09:47 | Emergency (ER) | payer MEDICARE, MEDICAID ==
[~2023-09-17] VITALS: Ht 172 cm; Wt 85.0 kg
--- NOTE | 2023-09-17 10:09 | ED GU-Female ---
General Chief Complaint: - Reproductive Stated Complaint: UTI Nursing Triage Note: pt to triage with c/o foul urine odor and lower back pain Source: patient Exam Limitations: no limitations History of Present Illness Date Seen by Provider: Sep 17, 2023 Time Seen by Provider: 10:09 Initial Comments This 62-year-old woman presents to the emergency room with concerns that she may have a urinary tract infection. She reports an increase in lower back pain which is a chronic problem for her. She has a nerve stimulator in her lower back, and she is unsure if it is functioning properly at this time. She has sciatica in the right leg associated with her lower back pain which seems to be worse in recent days and weeks. She reports her urine smells unusual and she is concerned this may represent urinary tract infection in the context of increased low back pain. She has not noticed any hematuria or dysuria. She denies fevers or chills. She has an implanted bladder stimulator in addition to the nerve stimulator for lower back pain. She reports having a shoulder surgery about 8 weeks ago. She was identified as having a urinary tract infection during the preop evaluation. She just got out of the sling yesterday. Allergies and Home Medications Allergies Coded Allergies: Penicillins (Unverified Allergy, Mild, ITCHING, 10/07/09) ciprofloxacin (Unverified Allergy, Mild, DIARRHEA, 10/07/09) diclofenac (Unverified Allergy, Mild, UPSET STOMACH, 10/07/09) fluticasone (Unverified Allergy, Mild, SWELLING, 10/07/09) levofloxacin (Unverified Allergy, Mild, DIARRHEA, 10/07/09) metformin (Unverified Allergy, Mild, COGNITIVE CHANGE, 10/07/09) misoprostol (Unverified Allergy, Mild, UPSET STOMACH, 10/07/09) nabumetone (Unverified Allergy, Mild, UPSET STOMACH, 10/07/09) pregabalin (Unverified Allergy, Mild, SWELING, 10/07/09) rofecoxib (Unverified Allergy, Mild, ULCERS, 10/07/09) salmeterol (Unverified Allergy, Mild, SWELLING, 10/07/09) diclofenac sodium (Unverified Allergy, Unknown, 02/01/15) fluticasone propionate (Unverified Allergy, Unknown, 02/01/15) hydrocodone (Verified Allergy, Unknown, 02/01/15) oxycodone (Verified Allergy, Unknown, 02/01/15) salmeterol xinafoate (Unverified Allergy, Unknown, 02/01/15) Patient Home Medication List Home Medication List Reviewed: Yes Acetaminophen with Codeine (Acetaminophen-Cod #3 Tablet) 300 Mg-30 Mg Tablet, 1 EACH PO Q6H PRN for COUGH Prescribed by: PETE SEXTON on 09/09/22 1329 Albuterol Sulfate (Proair Hfa) 90 Mcg Hfa.aer.ad, 2 PUFF IH Q4H PRN for W HEEZING, (Reported) Entered as Reported by: LUKE PETER on 06/24/22 0953 Albuterol Sulfate (Albuterol Sulfate) 0.63 Mg/3 Ml Vial.neb, 0.63 MG IH Q4H PRN for SHORTNESS OF BREATH, (Reported) Entered as Reported by: LUKE PETER on 06/24/22 0953 Amlodipine Besylate (Amlodipine Besylate) 10 Mg Tablet, 10 MG PO HS, (Reported) Entered as Reported by: LUKE PETER on 06/24/22 0957 Atorvastatin Calcium (Atorvastatin Calcium) 80 Mg Tablet, 80 MG PO HS, (Reported) Entered as Reported by: LUKE PEETR on 06/24/22 0953 Bictegrav/Emtricit/Tenofov Ala (Biktarvy 50-200-25 mg Tablet) 50 Mg-200 Mg-25 Mg Tablet, 1 EACH PO HS, (Reported) Entered as Reported by: LUKE PETER on 06/24/22 0957 Cefuroxime Axetil (Cefuroxime) 250 Mg Tablet, 250 MG PO BID Prescribed by: PETE SEXTON on 09/09/22 132 Clonidine HCl (Clonidine HCl) 0.1 Mg Tablet, 0.1 MG PO BID, (Reported) Entered as Reported by: LUKE PETER on 06/24/22 0957 Dexlansoprazole (Dexilant) 60 Mg Cap.bp, 60 MG PO HS, (Reported) Entered as Reported by: LUKE PETER on 06/24/22 0957 Diclofenac Sodium (Diclofenac Sodium) 50 Mg Tablet.dr, 50 MG PO HS, (Reported) Entered as Reported by: LUKE PETER on 06/24/22956 Dicyclomine HCl (Dicyclomine HCl) 20 Mg Tablet, 20 MG PO TID, (Reported) Entered as Reported by: LUKE PETER on 06/24/22952 Diphenoxylate HCl/Atropine (Diphenoxylate-Atrop 2.5-0.025) 2.5 Mg-0.025 Mg Tablet, 1 TAB PO UD, (Reported) Entered as Reported by: LUKE PETER on 06/24/22956 Duloxetine HCl (Duloxetine HCl) 60 Mg Capsule.dr, 60 MG PO HS, (Reported) Entered as Reported by: LUKE PETER on 06/24/22956 Escitalopram Oxalate (Lexapro) 10 Mg Tablet, 10 MG PO HS, (Reported) Entered as Reported by: LUKE PETER on 06/24/22956 Fluticasone/Umeclidin/Vilanter (Trelegy Ellipta 100-62.5-25) 100-62.[address]dev, 1 EACH IH DAILY, (Reported) Entered as Reported by: LUKE PETER on 06/24/22956 Gabapentin (Gabapentin) 100 Mg Capsule, 100 MG PO TID, (Reported) Entered as Reported by: LUKE PETER on 06/24/22952 Gabapentin (Neurontin) 300 Mg Capsule, 300 MG PO TID Prescribed by: FRANCINE MANDUJANO on 09/17/23 1129 Glimepiride (Glimepiride) 4 Mg Tablet, 4 MG PO HS, (Reported) Entered as Reported by: LUKE PETER on 06/24/22956 Insulin Determir (Levemir) 100 Unit/Ml Soln, 0 SQ HS, (Reported) Entered as Reported by: LUKE PETER on 06/24/22952 Lipase/Amylase/Protease (Paulon 6,000 Units Capsule) 6K-19K-30K Cap, 3 EA PO TID, (Reported) Entered as Reported by: LUKE PETER on 06/24/22952 Loratadine (Loratadine) 10 Mg Tablet, 10 MG PO HS, (Reported) Entered as Reported by: LUKE PETER on 06/24/22956 Meloxicam (Meloxicam) 15 Mg Tablet, 15 MG PO HS, (Reported) Entered as Reported by: LUKE PETER on 06/24/22952 Metoclopramide HCl (Metoclopramide HCl) 5 Mg Tablet, 5 MG PO QID, (Reported) Entered as Reported by: LUKE PETER on 06/24/22956 Metoprolol Tartrate (Metoprolol Tartrate) 25 Mg Tablet, 25 MG PO HS, (Reported) Entered as Reported by: LUKE PETER on 06/24/22952 Multivitamin (Multivitamin) 1 Each Tablet, 1 EACH PO DAILY, (Reported) Entered as Reported by: LUKE PETER on 06/24/22952 Pantoprazole Sodium (Pantoprazole Sodium) 40 Mg Tablet.dr, 40 MG PO DAILY Prescribed by: LUKE PETER on 07/01/22 1601 Pantoprazole Sodium (Protonix) 40 Mg Tablet.dr, 40 MG PO DAILY Prescribed by: DAVID BOLDEN on 06/17/23147 Promethazine HCl (Promethazine Tablet) 25 Mg Tablet, 25 MG PO TID PRN for NAUSEA/VOMITING, (Reported) Entered as Reported by: LUKE PETER on 06/24/22952 Sucralfate (Carafate) 1 Gram Tablet, 1 GM PO QID Prescribed by: DAVID BOLDEN on 06/17/23 014 Sulfamethoxazole/Trimethoprim (Bactrim Ds Tablet) 800 Mg-160 Mg Tablet, 1 EACH PO BID Prescribed by: PETE SEXTON on 09/09/22 1329 Tramadol HCl (Tramadol HCl) 50 Mg Tablet, 50-100 MG PO Q4H PRN for PAIN-MILD (1- 4), (Reported) Entered as Reported by: LUKE PETER on 06/24/22952 Review of Systems Review of Systems Constitutional: no symptoms reported EENTM: no symptoms reported Respiratory: no symptoms reported Cardiovascular: no symptoms reported Gastrointestinal: no symptoms reported Genitourinary: see HPI Musculoskeletal: see HPI Skin: no symptoms reported Psychiatric/Neurological: See HPI Endocrine: No Symptoms Reported Hematologic/Lymphatic: No Symptoms Reported Past Vtojotg-Fgycov-Raemro Hx Immunizations Up To Date Tetanus Booster (TDap): Unknown Influenza Vaccine Up-to-Date: Yes; Up-to-Date First/Initial COVID19 Vaccinat: UNKNOWN Second COVID19 Vaccination Sukhwinder: UNKNOWN Third COVID19 Vaccination Date: UNKNOWN Seasonal Allergies Seasonal Allergies: No Past Medical History Surgery/Hospitalization HX: SX: BILAT ANKLE REPLACEMENTS, L KNEE REPLACEMENT, BILAT CARPAL TUNNEL, BILAT CATARACTS, NERVE STIMULATOR, HIATAL HERNIA REPAIR, GALLBLADDER, HYST Surgeries: Yes (HIATAL HERNIA;R/L CTR;R HIP;bilat ANKLE;L KNEE TKR;SPINAL STIMULATOR) Abdominal, Bladder Surgery (Implanted bladder stimulator), Cardiac, Coronary Stent, Eye Surgery, Gallbladder, Hysterectomy, Oophorectomy, Orthopedic, Tubal Ligation Respiratory: Yes (COPD) Asthma, Chronic Bronchitis, COPD Cardiac: Yes (CHRONIC CHEST PAIN; CARDIAC CATHS WITH STENT X 03/2019 ) Angina, Coronary Artery Disease, High Cholesterol, Hypertension Neurological: Yes 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 ORTHO SURGERIES) Degenerate Disk Disease, Arthritis, Fibromyalgia, Chronic Back Pain (Implanted nerve stimulator) Endocrine: Yes Diabetes, Insulin dep, Hypothyroidsim HEENT: Yes Cataract Hearing Impairment: Hard of Hearing Cancer: No Psychosocial: Yes Anxiety, Depression Integumentary: No Blood Disorders: Yes (HIV) Family Medical History Patient reports no known family medical history. PAST SURGICAL HISTORY: -MULTIPLE CARDIAC CATHS, WITH CARDIAC STENT X 03/2019 -LEFT TOTAL KNEE REPLACEMENT -RIGHT ANKLE SURGERY--ANKLE REPLACEMENT 2012 -LEFT ANKLE REPLACEMENT SURGERY -BILATERAL CARPAL TUNNEL SURGERY -SPINAL STIMULATOR -RIGHT HIP REPLACEMENT SURGERY -MULTIPLE KNEE ARTHROSCOPIES -HIATAL HERNIA REPAIR -HYSTERECTOMY -CHILECYSTECTOMY -BILATERAL CATARACT SURGERY -URETHRAL SLING 12/2012 Physical Exam Vital Signs Vital Signs - First Documented 09/17/23 09:56 Temp 36.8 Pulse 73 Resp 20 B/P (MAP) 162/77 (105) Pulse Ox 99 O2 Delivery Room Air Capillary Refill : Less Than 3 Seconds Height, Weight, BMI Height: 5'8.00" Weight: 210lbs. 1.6oz. [id number]; 28.00 BMI Method:Estimated General Appearance: WD/WN, no apparent distress HEENT: normal ENT inspection Neck: normal inspection Cardiovascular: regular rate, rhythm, no edema, no murmur Respiratory: lungs clear, normal breath sounds, no respiratory distress Gastrointestinal: normal bowel sounds, non tender, soft; No distended Back: normal inspection, other (Is to palpation in the right SI joint region) Extremities: normal inspection, no pedal edema, no calf tenderness Neurologic/Psychiatric: alert, normal mood/affect, oriented x 3, motor weakness (Slight weakness in the right lower extremity which patient believes is secondary to pain) Skin: normal color, warm/dry Procedures/Interventions Suture Size: 5-0 Progress/Results/Core Measures Suspected Sepsis SIRS Temperature: Pulse: 73 Respiratory Rate: 20 Blood Pressure 162 /77 Mean: 105 Results/Orders Lab Results Laboratory Tests Test 09/17/23 10:09 Range/Units Urine Color YELLOW Urine Clarity CLEAR Urine pH 7.0 5-9 Urine Specific [place] 1.020 1.016-1.022 Urine Protein NEGATIVE NEGATIVE Urine Glucose (UA) TRACE H NEGATIVE Urine Ketones NEGATIVE NEGATIVE Urine Nitrite NEGATIVE NEGATIVE Urine Bilirubin NEGATIVE NEGATIVE Urine Urobilinogen 0.2 < = 1.0 MG/DL Urine Leukocyte Esterase NEGATIVE NEGATIVE Urine RBC (Auto) TRACE H NEGATIVE Urine RBC NONE /HPF Urine WBC NONE /HPF Urine Squamous Epithelial Cells RARE /HPF Urine Crystals NONE /LPF Urine Bacteria TRACE /HPF Urine Casts NONE /LPF Urine Mucus NEGATIVE /LPF Urine Culture Indicated NO My Orders Orders - FRANCINE BA MD Ua Culture If Indicated (09/17/23 10:08) Vital Signs/I&O 09/17/23 09/17/23 09:56 11:31 Temp 36.8 Pulse 73 88 Resp 20 20 B/P (MAP) 162/77 (105) 150/87 Pulse Ox 99 99 O2 Delivery Room Air Room Air Capillary Refill : Less Than 3 Seconds Blood Pressure Mean: 105 Progress Note : Time: 10:09 Progress Note I began working this case in 1009 when I received report from nursing staff and ordered a urinalysis. Patient was interviewed and examined at 1040. Urinalysis was reviewed and interpreted by me. Urinalysis was unremarkable. I advised patient to seek consultation with her paint grinder and have her stimulator devices evaluated. Departure Impression Primary Impression: Low back pain Qualified Codes: M54.41 - Lumbago with sciatica, right side; G89.29 - Other chronic pain Disposition: 01 HOME, SELF-CARE Condition: Stable Departure-Patient Inst. Decision time for Depature: 11:26 Referrals: ANANT MONTOYA DO (PCP/Family) Primary Care Physician Patient Instructions: Low Back Pain ED, Sciatica ED Add. Discharge Instructions: You may increase gabapentin to the 300 mg dose prescribed from the ER. Use with caution initially as this increased dose may cause drowsiness. Be careful with your activities until you know how the higher dose affects you. Please contact your paint grinder as soon as possible to discuss further evaluation and treatment options. Return to the emergency room if you have progressive symptoms that include loss of control of the legs, progressive weakness of the legs, pain not responsive to medications, numbness in the groin, or new bladder or bowel dysfunction. All discharge instructions reviewed with patient and/or family. Voiced understanding. Scripts Gabapentin (Neurontin) 300 Mg Capsule 300 MG PO TID, #20 CAP Prov: FRANCINE BA MD 09/17/23 Copy Copies To 1: ANANT MONTOYA JOSHUA T MD Sep 17, 2023 10:09
[2023-09-17 10:33] LABS: CLARITY,URINE CLEAR; COLOR,URINE YELLOW; PROTEIN,URINE NEGATIVE (NEGATIVE)
[2023-09-17 10:34] LABS: BACTERIA,URINE TRACE /HPF; BILIRUBIN,URINE NEGATIVE (NEGATIVE); GLUCOSE, URINE (UA) TRACE (NEGATIVE); KETONES,URINE NEGATIVE (NEGATIVE); LEUKOCYTE ESTERASE ,URINE NEGATIVE (NEGATIVE); NITRITE,URINE NEGATIVE (NEGATIVE); SQUAMOUS EPITHELIAL CELL,UR RARE /HPF
[2023-09-17] MEDS ORDERED: GABA300C PO (11:29)
[2023-09-17 11:31] VITALS: BP 150/87
== END 2023-09-17 11:34 | disposition home or self-care (01) ==
LOC: EDUNIT# 09:47 → ER 09:48
DX: M54.50 Low back pain, unspecified (principal); E11.9 Type 2 diabetes mellitus without complications; Z79.4 Long term (current) use of insulin
CPT/HCPCS: 81000; 99285